=== PATIENT | female | born 1980 | race Caucasian/White ===

== ENCOUNTER 2016-09-24 15:43 | Emergency (ER) | payer OTHER ==
[2016-09-24] MEDS ORDERED: DIPH,PERTUS(ACELL)TETVAC-LF 0.5 ML VIAL IM ONE (16:16)
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
[2016-09-24] MEDS ORDERED: HYDROcodone/APAP 5-325MG 1 EACH TAB PO STA (16:41)
== END 2016-09-24 17:07 | disposition home or self-care (01) ==
LOC: EC 15:43
DX: T22.211A Burn of second degree of right forearm, initial encounter (principal); T22.231A Burn of second degree of right upper arm, initial encounter; T22.012A Burn of unspecified degree of left forearm, initial encounter; T31.0 Burns involving less than 10% of body surface; Z23 Encounter for immunization; X12.XXXA Contact with other hot fluids, initial encounter; Y92.69 Other specified industrial and construction area as the place of occurrence of the external cause; Y99.0 Civilian activity done for income or pay
CPT/HCPCS: 16020; 90471; 90715; 99283

== ENCOUNTER → 2018-11-19 | Day surgery (SDC) | payer BC ==
[2018-11-17 11:58] VITALS: BMI 22.1
--- NOTE | 2018-11-18 19:50 | P.HPOB ---
History of Present Illness H&P Date: 11/18/18 Chief Complaint: Family planning This is a 38-year-old female 3 para 2 who presents for laparoscopic bilateral tubal ligation via fulguration for family planning. She currently has an IUD that she would like removed at the time of surgery. Her current ParaGard IUD has been in over 10 years and is due for removal. She desires no future fertility. Obstetrical history: . History of 2 vaginal deliveries and 1 miscarriage. Gynecologic history: No history of sexual transmitted diseases. Social history: She is . She works part-time at [employer]. Review of Systems Constitutional: Denies chills, Denies fever Eyes: denies blurred vision, denies pain Ears, nose, mouth and throat: Denies sore throat Cardiovascular: Denies chest pain, Denies shortness of breath Respiratory: Denies cough Gastrointestinal: Denies abdominal pain, Denies diarrhea, Denies nausea, Denies vomiting Menstruation: Reports period normal Musculoskeletal: Denies myalgias Integumentary: Denies pruritus, Denies rash Neurological: Reports headaches (Occasional) Psychiatric: Denies anxiety, Denies depression Endocrine: Reports fatigue, Denies weight change Hematologic/Lymphatic: Reports easy bruising Past Medical History Additional Past Medical History / Comment(s): migraines, pt has IUD History of Any Multi-Drug Resistant Organisms: None Reported Additional Past Surgical History / Comment(s): D&C Past Anesthesia/Blood Transfusion Reactions: No Reported Reaction Past Psychological History: No Psychological Hx Reported Smoking Status: Never smoker Past Alcohol Use History: None Reported Past Drug Use History: None Reported - Past Family History Mother Family Medical History: Cancer Medications and Allergies Home Medications Medication Instructions Recorded Confirmed Type Multivitamin [Multivitamins Adult 1 each PO DAILY 11/17/18 11/17/18 History Gummies] Rizatriptan Benzoate [Maxalt] 10 mg PO DIRECTED PRN 11/17/18 11/17/18 History SUMAtriptan SUCCINATE [Imitrex] 100 mg PO DIRECTED PRN 11/17/18 11/17/18 History Allergies Allergy/AdvReac Type Severity Reaction Status Date / Time No Known Allergies Allergy Verified 11/17/18 11:52 Exam Osteopathic Statement: *. No significant issues noted on an osteopathic structural exam other than those noted in the History and Physical/Consult. HEENT: Within normal limits Heart: Regular rate and rhythm Lungs: Clear to auscultation bilaterally Abdomen: Soft, nontender Pelvic exam: Uterus is retroverted, nontender, with no adnexal masses or tenderness noted. IUD strings are visible. Extremities: Negative Homans Assessment and Plan (1) Family planning Status: Acute Code(s): Z30.09 - ENCOUNTER FOR OT GENERAL CNSL AND ADVICE ON CONTRACEPTION SNOMED Code(s): 916623784 Plan: Proceed with laparoscopic bilateral tubal ligation via fulguration and IUD removal. I have discussed the risks, benefits, and alternative therapies for the above- mentioned procedure and for both sedation/anesthesia as well as necessary blood products administration, if indicated, as they pertain to this patient. The patient has indicated her understanding and acceptance of the risks and procedures discussed.
[~2018-11-19] MED LIST: BUPIVACAINE (PF) 0.25% 30 ML VIAL SQ ONE; DEXAMETHASONE SOD PHOSPHATE 10 MG/ML 1 ML VIAL IV ONE; GLYCOPYRROLATE 0.2 MG/ML 2 ML VIAL ONE; HYDROcodone/APAP 5-325MG 1 EACH TAB PO ONE; KETOROLAC 30 MG/ML 1 ML VIAL ONE; LACTATED RINGERS 1,000 ML IV ONE; LACTATED RINGERS 1,000 ML IV SCH; LIDOCAINE 1% 20 ML VIAL (10MG/ML) FOR IV START INTRADERMA ONE; LIDOCAINE 1% INJ 10MG/ML (20 ML MDV) ONE; MIDAZOLAM 2 MG/2 ML VIAL ONE; NEOSTIGMINE 1 MG/ML 10 ML VIAL ONE; ONDANSETRON 4 MG/2 ML VIAL IVP ONE; ONDANSETRON 4 MG/2 ML VIAL IVP PRN; PROPOFOL 10 MG/ML 20 ML VIAL IV ONE; Pre Op ABX Message 1 EACH MISC MISCELLANE ONE; ROCURONIUM BROMIDE 10 MG/ML 10 ML VIAL IV ONE; SCOPOLAMINE 1.5MG/72HR PATCH TRANSDERM ONE; fentaNYL (PF) 50 MCG/ML 2 ML AMP ONE
--- NOTE | 2018-11-19 08:23 | P.OP ---
Date of Procedure: 11/19/18 Preoperative Diagnosis: Family planning Postoperative Diagnosis: Same Procedure(s) Performed: Laparoscopic bilateral tubal ligation via fulguration Removal of IUD Anesthesia: RO Surgeon: Bertha Fried Estimated Blood Loss (ml): 20 Pathology: none sent Condition: stable Disposition: same day Indications for Procedure: This is a 38-year-old female 3 para 2 who presents for laparoscopic bilateral tubal ligation via fulguration for family planning. She currently has an IUD that she would like removed at the time of surgery. Her current ParaGard IUD has been in over 10 years and is due for removal. She desires no future fertility. Operative Findings: Uterus is anteverted and sounded to 9 cm. Normal uterus tubes and ovaries are noted. IUD strings were noted to be short but were visible and IUD was removed intact. Description of Procedure: The patient is taken to the operating room where she is placed in the dorsal lithotomy position. She is prepped and draped in the normal sterile fashion. Examination is performed under anesthesia. Uterus is found to be in a anteverted position. No adnexal masses were palpated. Next a bivalve speculum was placed in the patient's vagina. A single-tooth tenaculum was used to grasp the anterior lip of the cervix. IUD strings are visualized and grasped with a ring forcep. The Mirena IUD was removed completely intact. The uterus was sounded to 9 cm. The kroner uterine manipulator was then inserted through the cervix and the balloon was inflated. The single-tooth tenaculum is removed speculum was removed gloves were changed and attention was turned to the abdomen. The infraumbilical fold was grasped in transverse fashion with 2 Allis clamps. A small transverse incision was made with a scalpel. A hemostat was used to carry the incision down to the underlying layer of fascia. A towel clip was placed above the umbilicus for retraction. A 10 mm disposable bladeless trocar was then inserted into the peritoneal cavity under direct visualization. Once inside, pneumoperitoneum was achieved with CO2 gas. The insert was removed and the camera was placed. Intraperitoneal placement was confirmed. No bleeding was noted. Next the patient was placed in Trendelenburg position. A small stab incision was made suprapubically and a 5 mm disposable bladeless trocar was inserted into the peritoneal cavity under direct visualization. Once inside pelvic contents were inspected. Next a bipolar Kleppinger instrument was placed through the inferior trocar and the midportion of each tube was brought away from other structures and completely fulgurated on approximate 2-3 cm segment of each tube. Excellent hemostasis was noted. A picture was taken. Pneumoperitoneum was released after the inferior trocar was removed under direct visualization. The upper trocar was then removed. The fascial incision was closed with 0 Vicryl suture in interrupted [id number] stitch. The skin incisions were then closed with 4-0 Vicryl suture in a subcuticular fashion. Incisions are then injected with quarter percent Marcaine. Approximately 8 mL were used. Next the kroner uterine manipulator was removed. Minimal bleeding was noted. All sponge and needle counts are correct. The patient is then taken to recovery room in stable condition.
[2018-11-19 08:47] VITALS: RESP 16; TEMP 97
[2018-11-19] MEDS: HYDROmorphone 0.5 MG/0.5 ML SYRINGE IVP PRN ×4 (08:58→09:26)
[2018-11-19 10:41] VITALS: BP 109/73; PULSE 69
== END | disposition home or self-care (01) ==
LOC: OR 06:43
PROVIDERS: ATTEND Obstetrics & Gynecology
DX: Z30.2 Encounter for sterilization (principal); Z30.432 Encounter for removal of intrauterine contraceptive device
CPT/HCPCS: 81025; 58670; 58301; J2250; J1100; J2710; J2405; J2001; J3010; J1885; J2704; J1170

== ENCOUNTER → 2018-12-01 | Outpatient (CLI) | payer BC ==
--- NOTE | 2018-12-02 10:01 | MM ---
Reason for exam: screening (asymptomatic). Baseline mammogram. History: Family history of breast cancer in paternal grandmother at age 70. Physical Findings: Nurse did not find any significant physical abnormalities on exam. MG Screening Mammo w CAD Bilateral CC and MLO view(s) were taken. The breast tissue is extremely dense which could obscure a lesion on mammography. No suspicious abnormality. No significant new findings when compared with previous films. These results were verbally communicated with the patient and result sheet given to the patient on 12/01/18. ASSESSMENT: Negative, BI-RAD 1 RECOMMENDATION: Routine screening mammogram of both breasts in 1 year.
== END | disposition home or self-care (01) ==
LOC: RADMAMWWP 10:15
PROVIDERS: ATTEND Obstetrics & Gynecology
DX: Z12.31 Encounter for screening mammogram for malignant neoplasm of breast (principal)
CPT/HCPCS: 77067

== ENCOUNTER → 2020-07-12 | Outpatient (CLI) | payer OTHER ==
--- NOTE | 2020-07-12 12:14 | MM ---
Reason for exam: additional evaluation requested from prior study. Last mammogram was performed 1 year and 7 months ago. History: Family history of breast cancer in paternal grandmother at age 70. Physical Findings: Nurse Summary: 2cm nodule in the left breast at 1 o'clock (nurse cesar). MG 3D Diag Mammo W/Cad KENIA Bilateral CC and MLO view(s) were taken. Prior study comparison: December 01, 2018, bilateral MG screening mammo w CAD. The breast tissue is extremely dense which could obscure a lesion on mammography. Finding: There is a vague 12 mm lobulated mass in the upper outer quadrant of the left breast. These results were verbally communicated with the patient and result sheet given to the patient on 07/12/20. ASSESSMENT: Incomplete: need additional imaging evaluation, BI-RAD 0 RECOMMENDATION: Ultrasound of the left breast.
--- NOTE | 2020-07-12 12:17 | USB ---
Reason for exam: additional evaluation requested from abnormal screening. History: Family history of breast cancer in paternal grandmother at age 70. US Breast Limited LT Technologist: Sharon Malone Left limited breast ultrasound including focal area of concern, retroareolar and axilla demonstrates a 1.1 x 1.4 x 0.9cm irregular, hypoechoic lesion at 1 o'clock. Scanned 12-2 o'clock. These results were verbally communicated with the patient and result sheet given to the patient on 07/12/20. ASSESSMENT: Suspicious, BI-RAD 4 RECOMMENDATION: Ultrasound core biopsy of the left breast. Called Dr. Bey's office with mammographic findings and has scheduled an appointment for the patient for 07/19/20 at 9:[address] Pham. Biopsy scheduled for 07/25/20 at 12:00. PRELIMINARY REPORT CALLED AND FAXED TO DR. PHAM ON 07/12/20.
== END ==
LOC: RADMAMWWP 09:31
PROVIDERS: ATTEND Internal Medicine
DX: N63.20 Unspecified lump in the left breast, unspecified quadrant (principal); Z80.3 Family history of malignant neoplasm of breast
CPT/HCPCS: 77062; 77066

== ENCOUNTER → 2020-07-19 | Outpatient (CLI) | payer OTHER ==
[2020-07-19 07:32] VITALS: BP 115/71; PULSE 82; RESP 16; TEMP 98.1
--- NOTE | 2020-07-19 07:58 | P.GSHP ---
History of Present Illness H&P Date: 07/19/20 Chief Complaint: mass left breast Shana is a 39 year old white female seen in consultation for Dr. Bey regarding a mass in her left breast. She noted a lump in her left breast about three weeks ago. It has not changed since she noticed it. It is not painful. She had her first mammogram approximately 2 years ago. She subsequently had a mammogram on this revealed a vague 12 mm lobulated mass in the upper outer quadrant of the left breast. She additionally had an ultrasound done on the same date which revealed a 1.4 x 1.1 cm irregular lesion at 1:00. Her prior mammogram had been on 12/01/2018 which was negative BIRADS 1. She is not complaining of any nipple discharge or skin changes. She is not complaining of any other masses in her breast. She has not had any recent history of trauma or infection in the breast. She has not had any surgery in the breast. There is no change with her periods. Caffeine: 1 cup/day nicotine: none chocolate: occasional Family history: Paternal grandmother: Breast cancer Hormonal History: menarche: 12 miscarriage:1, breast fed: yes first born at age 23 periods regular; LMP 1 week ago BCP: no had a tubaligation Surgical history: Ligation D&C Medical history: migraines Social history: Nicotine: Negative Alcohol:none drugs: none - Constitutional Constitutional: Denies chills, Denies fever - EENT Eyes: denies blurred vision, denies pain Ears: deny: decreased hearing, tinnitus Ears, nose, mouth and throat: Reports headache, Denies sore throat - Breasts Breasts: bilateral: as per HPI - Cardiovascular Cardiovascular: Denies chest pain, Denies shortness of breath - Respiratory Respiratory: Denies cough, Denies 7 - Gastrointestinal Gastrointestinal: Denies abdominal pain, Denies diarrhea, Denies nausea, Denies vomiting - Genitourinary (Female) Genitourinary: Denies dysuria, Denies hematuria - Menstruation Menstruation: Reports period normal - Musculoskeletal Musculoskeletal: Denies myalgias - Integumentary Integumentary: Denies pruritus, Denies rash - Neurological Neurological: Denies numbness, Denies weakness - Psychiatric Psychiatric: Reports anxiety, Denies depression - Endocrine Endocrine: Denies fatigue, Denies weight change - Hematologic/Lymphatic Comment: none Past Medical History Past Medical History: No Reported History History of Any Multi-Drug Resistant Organisms: None Reported Past Surgical History: Tubal Ligation Past Psychological History: No Psychological Hx Reported Past Alcohol Use History: None Reported Past Drug Use History: None Reported Medications and Allergies Home Medications Medication Instructions Recorded Confirmed Type Rizatriptan Benzoate [Maxalt] 10 mg PO DAILY PRN 11/17/18 07/13/20 History SUMAtriptan SUCCINATE [Imitrex] 100 mg PO DAILY PRN 11/17/18 07/13/20 History Allergies Allergy/AdvReac Type Severity Reaction Status Date / Time No Known Allergies Allergy Verified 07/19/20 07:22 Surgical - Exam BMI: 22.3 - General well developed, well nourished, no distress - Eyes normal ocular movement - ENT no hearing loss, no congestion - Neck trachea midline - Respiratory normal expansion, normal respiratory effort, clear to auscultation - Cardiovascular Rhythm: regular Heart Sounds: normal: S1, S2 - Abdomen Abdomen: soft, non tender, no guarding, no rigid, no rebound - Integumentary normal turgor - Neurologic no disoriented, no combative - Musculoskeletal normal gait, normal posture - Psychiatric oriented to time, oriented to person, oriented to place, speech is normal, memory intact breast exam: BRA: 34B insepction: Grade 2 ptosis bilateral Palpation: Right breast: Multi-positional exam fibrocystic changes, no dominant masses or nodules of concern Right axilla: No adenopathy of concern left breast: Multi-positional exam fibrocystic changes, dense breast, approximately 2 cm nodule in the upper outer quadrant which is mobile Left axilla: No adenopathy of concern Results Mammogram and ultrasound reviewed with Dr. Ambrose; mass left breast appreciated Assessment and Plan Assessment: Impression: 1. Mammographic and ultrasound abnormality left breast 2. Dense breast 3. Fibrocystic breast changes 4. Mass upper outer quadrant left breast 5. Migraine headaches Plan: 1. Radiograph and ultrasound reviewed with radiology and independent interpretation performed/concur with ultrasound-guided core biopsy 2. Patient to follow up after core biopsy Cc: Dr. Bey, Dr. Fried Risks and benefits of the procedure were discussed with the patient. These include but are not limited to bleeding, infection, reaction to the anesthetic. She understands and wishes to proceed.
== END ==
LOC: WWCWWP 07:15
PROVIDERS: ATTEND Surgery
DX: N63.21 Unspecified lump in the left breast, upper outer quadrant (principal); R92.2 Inconclusive mammogram; N60.12 Diffuse cystic mastopathy of left breast; N60.11 Diffuse cystic mastopathy of right breast; G43.909 Migraine, unspecified, not intractable, without status migrainosus

== ENCOUNTER → 2020-07-25 | Day surgery (SDC) | payer OTHER ==
[2020-07-25 12:07] VITALS: RESP 16
[2020-07-25 13:50] VITALS: BP 104/69; PULSE 71; TEMP 98.4
--- NOTE | 2020-07-25 15:06 | USB ---
EXAMINATION TYPE: US biopsy breast VAD LT DATE OF EXAM: 07/25/2020 CLINICAL HISTORY: R92.8 Abnormal Mammogram. TECHNIQUE: Ultrasound guided vaccuum assisted core biopsy of left breast. COMPARISON: 07/12/2020 ultrasound FINDINGS: The ultrasound guided core biopsy procedure was explained to the patient. The risks, benefits, alternatives were discussed. An informed consent was then obtained. Timeout was performed. The patient was placed in supine positioning for imaging and for the procedure. The overlying skin was prepped with betadine and sterilely draped in usual sterile fashion. Lidocaine 1% was used as anesthetic into the skin and deeper breast tissue up to area of concern in the breast. A small skin sarahy was made with surgical scalpel. Under ultrasound guidance, a 12-gauge vacuum assisted biopsy device was used to obtain 6 core samples. A biopsy clip was left in lesion. Ribbon clip was placed. Good hemostasis was obtained with direct pressure. Discharge instructions were discussed with the patient. The patient will follow up with the referring physician for results. Postprocedure mammogram: The patient was transferred to mammography for physician ordered post procedure mammogram for clip placement verification. The clip is in the expected region of the biopsy. The patient tolerated the procedure well without any immediate complication. The patient was discharged to home in stable condition. IMPRESSION: 1. Successful ultrasound guided biopsy left breast. Recommendations: 1. Recommendations are pending pathology results. 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 See Surgical Pathology Cancer Case Summary and Comment. Recommendation Surgical consult of the left breast. LEONARD
--- NOTE | 2020-07-25 15:07 | MM ---
EXAMINATION TYPE: US biopsy breast VAD LT DATE OF EXAM: 07/25/2020 CLINICAL HISTORY: R92.8 Abnormal Mammogram. TECHNIQUE: Ultrasound guided vaccuum assisted core biopsy of left breast. COMPARISON: 07/12/2020 ultrasound FINDINGS: The ultrasound guided core biopsy procedure was explained to the patient. The risks, benef its, alternatives were discussed. An informed consent was then obtained. Timeout was performed. The patient was placed in supine positioning for imaging and for the procedure. The overlying skin w as prepped with betadine and sterilely draped in usual sterile fashion. Lidocaine 1% was used as ane sthetic into the skin and deeper breast tissue up to area of concern in the breast. A small skin tk k was made with surgical scalpel. Under ultrasound guidance, a 12-gauge vacuum assisted biopsy device was used to obtain 6 core samples . A biopsy clip was left in lesion. Ribbon clip was placed. Good hemostasis was obtained with direct pressure. Discharge instructions were discussed with the pa jass. The patient will follow up with the referring physician for results. Postprocedure mammogram: The patient was transferred to mammography for physician ordered post proced ure mammogram for clip placement verification. The clip is in the expected region of the biopsy. The patient tolerated the procedure well without any immediate complication. The patient was dischar ged to home in stable condition. IMPRESSION: 1. Successful ultrasound guided biopsy left breast. Recommendations: 1. Recommendations are pending pathology results.
== END ==
LOC: RADUSWWP 11:54
PROVIDERS: ATTEND Surgery
DX: C50.912 Malignant neoplasm of unspecified site of left female breast (principal); Z17.0 Estrogen receptor positive status [ER+]
CPT/HCPCS: 88305; 88342; 88341; 77065; 19083; A4648; J2001

== ENCOUNTER → 2020-08-03 | Outpatient (CLI) | payer OTHER ==
[2020-08-03 09:10] VITALS: BP 114/76; PULSE 120; RESP 10; TEMP 97.5
--- NOTE | 2020-08-03 09:49 | P.PN ---
Subjective Progress Note Date: 08/03/20 Principal diagnosis: left breast stage IA invasive ductal cancer Gemma is a 39-year-old white female who underwent an ultrasound guided core biopsy on . This was of the left breast upper outer quadrant region. 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 The lesion is approximately 1.5 cm on ultrasound. It was not able to be seen on mammogram but was found on ultrasound. After review of the films with the radiologist she is going to have dedicated ultrasound of both breasts. The lesion is ER +100%, GA +10%, HER-2 negative, grade 3. This is a stage IA lesion. The patient's family history is positive for a paternal grandmother having had breast cancer. We have discussed the stage of the tumor. We have discussed genetic testing. Her case was discussed with Dr. Porter from medical oncology to see if she would benefit from any neoadjuvant therapy to shrink the tumor secondary to the small size of her breast prior to lumpectomy. They are going to see her next week. Last week she complained of a toothache and has had a recent tooth extraction. Family history: Paternal grandmother: Breast cancer Hormonal history: Menarche: 12 M1 breast-fed: Yes, first child born at 23 Menstrual periods Regular control pills: No had a tubal ligation Surgical history: Tubal ligation D&C Medical history: Migraines Social history: Nicotine: Negative Alcohol: Negative Drugs: Negative Review of systems: HEENT headaches; recent tooth extraction Breast as per HPI Cardiovascular: Negative Respiratory: Negative GI: Negative : Negative Musculoskeletal: Negative Neurologic: Negative Psychiatric: Anxiety Endocrine: Negative Objective - Vital Signs Vital signs: Vital Signs Temp 97.5 F L 08/03/20 09:06 Pulse 120 H 08/03/20 09:06 Resp 10 L 08/03/20 09:06 BP 114/76 08/03/20 09:06 Pulse Ox 100 08/03/20 09:06 Intake & Output 08/02/20 08/03/20 08/03/20 18:59 06:59 18:59 Weight 57.153 kg - Exam BMI 22.3 - Constitutional General appearance: Present: average body habitus, cooperative - EENT Eyes: Present: EOMI ENT: Present: hearing grossly normal - Neck Neck: Present: normal ROM - Integumentary Integumentary Comment(s): Mild ecchymosis left breast upper outer quadrant of biopsy site no evidence of infection or hematoma Assessment and Plan Assessment: Impression: 1. 39-year-old white female newly diagnosed left breast upper outer quadrant stage IA invasive ductal carcinoma T1 N0 M0 ER positive GA positive HER-2/mayra negative G3 2. Dense fibroglandular tissue and the breast/fibrocystic changes making mammographic evaluation unreliable 3. Fibrocystic breast changes 4. Family history of breast cancer Plan: 1. Genetic testing 2. Appointment with radiation oncology 3. Medical oncology 4. Presentation of case at tumor board 5. Bilateral breast MRI 6. follow up here after tumor board Surgical options ranging from bilateral mastectomy plus or minus reconstruction to lumpectomy plus radiation were discussed with the patient. If her genetic testing is negative the patient would prefer a lumpectomy. I discussed her case with Dr. Porter from medical oncology to determine if neoadjuvant therapy would be appropriate for shrinking the tumor. He will see her next week. [place] node biopsy plus or minus axillary node dissection were also discussed with the risk and benefits of this procedure. Risks and benefits of surgery include bleeding infection reaction to the anesthetic possibility of positive margin of the lumpectomy was performed which would require additional surgery. She understands these and these were discussed in more detail after her definitive treatment plan is determined. CC: Dr. Bey Encounter 60 minutes was spent reviewing medical records, physical examination, counseling, and discussion with other physicians.
--- NOTE | 2020-08-03 13:31 | USB ---
Reason for exam: clinical finding. History: Patient has history of breast cancer at age 39. Family history of breast cancer in paternal grandmother at age 70. Malignant US biopsy breast VAD LT of the left breast, July 25, 2020. US Breast BILAT Right complete breast ultrasound includes all four quadrants, the retroareolar region and axilla. Finding demonstrates no cystic or solid lesion seen. Left complete breast ultrasound includes all four quadrants, the retroareolar region and axilla. Finding demonstrates a 1.2 x 1.1 x 1.2cm irregular, hypoechoic lesion at 1 o'clock, known breast cancer and a 0.7 x 0.6 x 0.8cm round, hypoechoic lesion at 1 o'clock, abutting the biopsy proven cancer, likely small hematoma given recent biopsy. These results were verbally communicated with the patient and result sheet given to the patient on 08/03/20. ASSESSMENT: Known biopsy proven malignancy, BI-RAD 6 RECOMMENDATION: Surgical consultation of the left breast. Called Dr. Pham's office with mammographic findings. Dr. Pham spoke with Dr. Freire to review and seeing patient today. PRELIMINARY REPORT CALLED AND FAXED TO DR. PHAM ON 08/03/20.
== END ==
LOC: WWCWWP 08:54
PROVIDERS: ATTEND Surgery
DX: C50.412 Malignant neoplasm of upper-outer quadrant of left female breast (principal); G43.909 Migraine, unspecified, not intractable, without status migrainosus; Z79.899 Other long term (current) drug therapy; Z80.3 Family history of malignant neoplasm of breast

== ENCOUNTER → 2020-08-17 | Outpatient (CLI) | payer OTHER ==
--- NOTE | 2020-08-20 07:44 | BMR ---
EXAMINATION TYPE: MR breast BILAT wo/w con DATE OF EXAM: 08/17/2020 COMPARISON: 3-D diagnostic bilateral breast mammogram July 12, 2020 BI-RADS 0. Left breast ultrasoun d Limited July 12, 2020 BI-RADS 4. Complete bilateral breast ultrasound August 03, 2020 BI-RADS 6. HISTORY: Recent diagnosed left breast cancer, 1 o'clock on ultrasound guided biopsy July 25, 2020 in [place] high grade ductal carcinoma. TECHNIQUE: A series of fat and water weighted images in the long and short axis views of both breasts are obtained in conjunction with dynamic contrast MRI with subtraction technique. The patient was i njected with 6 mL intravenous Gadavist gadolinium contrast. Three-dimensional and additional postpr ocessing imaging is created on independent workstation and reviewed during official interpretation of this study. FINDINGS: There is redemonstration of extremely dense fibroglandular tissue bilaterally. Axial and coronal T2-weighted images show no significant cystic change or focal fluid collections. No suspicious axillary adenopathy is identified bilaterally. Delayed dynamic postcontrast imaging shows no concerning internal mammary adenopathy. Occasional ovo id well-defined small mass is present bilaterally measuring under 5 mm in size and reference 4 x 3 mm medial left breast at level of nipple image 285 series 302 and superior slightly outer right breast image 387 series 702. These show continued enhancement on dynamic imaging consistent with benign etio logy. Benign etiology given size and dynamic enhancement. With regards to the right breast, no abnormal skin thickening is seen. No pathologic enhancement or e nhancing greater than 5 mm mass is noted. The chest wall is intact. With regards to the left breast there is artifact from biopsy clip noted posteriorly in the upper out er quadrant image 52 series 601. Just anterior to the clip there is an irregular enhancing 1.2 x 1.1 cm lesion corresponding to site of biopsy-proven neoplasm. There is no additional suspicious greater than enhancing 5 mm mass or pathologic enhancement. No abnormal skin thickening is seen. The chest wa ll is intact. IMPRESSION: Identification of known biopsy-proven neoplasm left breast posterior outer slightly upper quadrant. No multicentric involvement left breast or MRI evidence for invasive neoplasm in the right breast. BI-RADS 6 biopsy-proven cancer left breast. BI-RADS 2 benign findings right breast. Recommendation: Appropriate surgical and oncologic management known left breast neoplasm.
== END | disposition home or self-care (01) ==
LOC: RADMRIMAIN 19:12
PROVIDERS: ATTEND Surgery
DX: C50.412 Malignant neoplasm of upper-outer quadrant of left female breast (principal)
CPT/HCPCS: 77049; C8937; A9585

== ENCOUNTER → 2020-08-31 | Outpatient (CLI) | payer OTHER ==
[2020-08-31 08:53] VITALS: BP 108/68; PULSE 72; RESP 16; TEMP 97.9
--- NOTE | 2020-08-31 09:50 | P.PN ---
Subjective Progress Note Date: 08/31/20 Principal diagnosis: left breast stage IA invasive ductal cancer left breast stage IA invasive ductal cancer Gemma is a 39-year-old white female who underwent an ultrasound guided core biopsy on . This was of the left breast upper outer quadrant region. 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 The lesion is approximately 1.5 cm on ultrasound. It was not able to be seen on mammogram but was found on ultrasound. After review of the films with the radiologist she is going to have dedicated ultrasound of both breasts. The lesion is ER +100%, [place] +10%, HER-2 negative, grade 3. This is a stage IA lesion. She also underwent an MRI of both breasts which revealed the lesion of concern noted in the left breast. No lesions of concern were noted otherwise in either breast. She also underwent Oncotype testing her Oncotype score was 22. She underwent genetic testing and verbal on the genetic testing is that it is negative for any abnormalities of significance. Her case was presented at tumor board and the recommendation was to proceed with lumpectomy and sentinel node biopsy prior to any neoadjuvant chemotherapy. The patient's family history is positive for a paternal grandmother having had breast cancer. She had a recent tooth extraction which is completely healed at this time. Family history: Paternal grandmother: Breast cancer Hormonal history: Menarche: 12 M1 breast-fed: Yes, first child born at 23 Menstrual periods Regular control pills: No had a tubal ligation Surgical history: Tubal ligation D&C Medical history: Migraines Social history: Nicotine: Negative Alcohol: Negative Drugs: Negative Review of systems: HEENT headaches; recent tooth extraction Breast as per HPI Cardiovascular: Negative Respiratory: Negative GI: Negative : Negative Musculoskeletal: Negative Neurologic: Negative Psychiatric: Anxiety Endocrine: Negative Objective - Vital Signs Vital signs: Vital Signs Temp 97.9 F 08/31/20 08:50 Pulse 72 08/31/20 08:50 Resp 16 08/31/20 08:50 BP 108/68 08/31/20 08:50 Pulse Ox 100 08/31/20 08:50 Intake & Output 08/30/20 08/31/20 08/31/20 18:59 06:59 18:59 Weight 57.153 kg - Exam BMI 22.3 - Constitutional General appearance: Present: average body habitus, cooperative - EENT Eyes: Present: EOMI ENT: Present: hearing grossly normal - Neck Neck: Present: normal ROM - Respiratory Respiratory: bilateral: CTA - Cardiovascular Rhythm: regular Heart sounds: normal: S1, S2 - Integumentary Integumentary: Present: normal turgor - Musculoskeletal Musculoskeletal: Present: gait normal - Psychiatric Psychiatric: Present: A&O x's 3, appropriate affect, intact judgment & insight - Additional findings Additional findings: Breast exam: BRA 34B inspection: Include 1/2 ptosis bilaterally Palpation: Right breast: On prior recent multiple positional exam no dominant masses or nodules of concern, fibrocystic changes Right axilla: No adenopathy of concern Left breast: Multi-positional exam fibrocystic changes, mass upper outer quadrant approximately 1 cm in size consistent with the radiographic changes and positive for invasive ductal carcinoma Left axilla: No adenopathy of concern Assessment and Plan Assessment: Impression/plan: 1. Stage I a left breast cancer 2. Genetic testing negative for genetic abnormality of significance as per verbal 3. MRI bilateral depressed no multifocal or multicentric disease 4. Patient patient's case presented at tumor board recommendation to proceed with surgery patient is not recommended to have neoadjuvant chemotherapy 5. Recent Oncotype testing 22 Plan: 1. Needle localization lumpectomy left breast 2. Possible optical plastic tissue transfer 3. [place] node injection, sentinel node biopsy, possible axillary node dissection Risks and benefits of the procedure were discussed with the patient. She is not felt to be a good candidate for mastopexy incision. We will proceed with lumpectomy. Patient was given the option of a mastectomy and does not wish to have this done. She understands that she will need to have radiation therapy following the procedure. Additionally risks include but are not limited to bleeding, infection, reaction to the anesthetic. If the margins were to be positive she understands she would need reexcision. Additionally risk of the axillary dissection include decreased sensation to the upper arm as well as possible swelling of the arm. Risk of injury to the dorsal or long thoracic nerve were discussed. She understands and wishes to proceed. Cc: Dr. Bey
== END ==
LOC: WWCWWP 08:34
PROVIDERS: ATTEND Surgery
DX: C50.912 Malignant neoplasm of unspecified site of left female breast (principal); Z17.0 Estrogen receptor positive status [ER+]; Z98.890 Other specified postprocedural states

== ENCOUNTER 2020-09-11 08:52 | Day surgery (SDC) | payer OTHER ==
[2020-09-06 14:29] VITALS: BMI 22.3
[~2020-09-11 08:52] MED LIST changes: -BUPIVACAINE (PF) 0.25% 30 ML VIAL SQ ONE; -DEXAMETHASONE SOD PHOSPHATE 10 MG/ML 1 ML VIAL IV ONE; +DEXAMETHASONE SOD PHOSPHATE 4 MG/ML 1 ML VIAL IV ONE; -GLYCOPYRROLATE 0.2 MG/ML 2 ML VIAL ONE; +HEPARIN SODIUM,PORCINE/PF 5,000 UNIT/0.5 ML SYRINGE SQ PRN; -HYDROcodone/APAP 5-325MG 1 EACH TAB PO ONE; -KETOROLAC 30 MG/ML 1 ML VIAL ONE; -LACTATED RINGERS 1,000 ML IV ONE; -LIDOCAINE 1% 20 ML VIAL (10MG/ML) FOR IV START INTRADERMA ONE; -LIDOCAINE 1% INJ 10MG/ML (20 ML MDV) ONE; +MIDAZOLAM 2 MG/2 ML VIAL IV PRN; -MIDAZOLAM 2 MG/2 ML VIAL ONE; -NEOSTIGMINE 1 MG/ML 10 ML VIAL ONE; -ONDANSETRON 4 MG/2 ML VIAL IVP PRN; -PROPOFOL 10 MG/ML 20 ML VIAL IV ONE; -ROCURONIUM BROMIDE 10 MG/ML 10 ML VIAL IV ONE; -fentaNYL (PF) 50 MCG/ML 2 ML AMP ONE
[2020-09-11] MEDS ORDERED: LIDOCAINE 1% (10MG/ML) FOR IV START INTRADERMA ONE (09:36)
[2020-09-11] MEDS ORDERED: LIDOCAINE 1% INJ 10MG/ML (20 ML MDV) SQ ONE (10:12)
--- NOTE | 2020-09-11 10:38 | USB ---
ULTRASOUND GUIDED LEFT BREAST NEEDLE LOCALIZATION : CLINICAL HISTORY: 1:00 lesion left breast FINDINGS: The procedure was explained to the patient. The risks, complications, benefits and alternatives were discussed and any questions were answered. Informed consent was obtained. Patient was placed supine on the ultrasound table and prepped and draped in the usual sterile fashion. Utilizing a K[place] 7 cm needle, the needle was placed through the lesion. The wire was subsequently placed. Mammographic and sonographic images demonstrate straight ideal placement of the wire. Needle was removed. All elements of maximal barrier and sterile technique were utilized. IMPRESSION: 1. Successful ultrasound guided left breast needle localization. Pathology Results: Malignant A. SENTINEL LYMPH NODES, EXCISION: 2 sentinel lymph nodes, each negative for metastatic carcinoma (0/2). CK7 and JASMEET stains with appropriate controls on blocks A1 and A2 negative for metastatic carcinoma. B. LEFT BREAST, LUMPECTOMY: Invasive high grade ductal carcinoma, Grade 3, with adjacent high grade ductal carcinoma in situ with comedonecrosis and features compatible with extensive intraductal component (see surgical pathology cancer case summary and comment). All margins negative for invasive carcinoma and DCIS. Closest margin to invasive carcinoma: close to and less than 1 mm from inferior/anterior margin junction. Closest margin to DCIS: close to and less than 1 mm from inferior and posterior margins. Positive for lymphovascular invasion and perineural invasion. Recommendation Surgical consult of the left breast. LEONARD
--- NOTE | 2020-09-11 10:57 | NM ---
EXAMINATION TYPE: NM sentinel node injection DATE OF EXAM: 09/11/2020 COMPARISON: NONE HISTORY: Left breast cancer TECHNIQUE AND FINDINGS: The procedure of sentinel lymph node injection was explained to the patient. The benefits, alternatives, and risks were discussed. An informed consent was then obtained. Overlying skin is cleaned with sterile alcohol. Following this, 520 uCi Tc99m Tilmanocept was inject ed in the upper outer aspect of the left nipple intradermally. The patient tolerated the procedure well without any immediate complication. The patient was kept in the radiology department for short stay after the procedure and then taken to surgery for surgical p rocedure what is presumed intraoperative gamma probe will be used for sentinel lymph node detection. IMPRESSION: Left breast radiotracer injection for sentinel node localization as above.
--- NOTE | 2020-09-11 11:16 | P.NAPBC ---
NAPBC Queries - NAPBC Queries Was patient's case review presented at [facility] tumor board? If no, comment.: Yes Was patient's pathology reviewed at [facility]? If no, comment.: Yes Was breast conservation surgery offered? If no, comment.: Yes Was sentinel node biopsy offered? If no, comment.: Yes Was diagnosis confirmed by percutaneous core biopsy? If no, comment.: Yes Is patient mastectomy patient?: No Was a preop referral to reconstructive surgeon offered?: No Clinical Stage: olayinka IA
[2020-09-11] MEDS ORDERED: KETOROLAC 15 MG/ML 1 ML VIAL ONE (11:37)
[2020-09-11] MEDS ORDERED: HYDROmorphone (PF) 1 MG/ML ONE (11:37)
[2020-09-11] MEDS ORDERED: PHENYLEPHRINE-0.9% NACL SYG 1,000 MCG/10 ML SYRINGE ONE (11:37)
[2020-09-11] MEDS ORDERED: PROPOFOL 10 MG/ML 20 ML VIAL IV ONE (11:37)
[2020-09-11] MEDS ORDERED: fentaNYL (PF) 50 MCG/ML 2 ML AMP ONE (11:37)
[2020-09-11] MEDS ORDERED: MIDAZOLAM 2 MG/2 ML VIAL ONE (11:37)
[2020-09-11] MEDS ORDERED: LIDOCAINE 1% INJ 10MG/ML (20 ML MDV) ONE (11:37)
--- NOTE | 2020-09-11 13:11 | P.OP ---
Date of Procedure: 09/11/20 Preoperative Diagnosis: Left breast stage IA invasive ductal carcinoma Postoperative Diagnosis: Same Procedure(s) Performed: Left breast sentinel node biopsy, needle localization lumpectomy, onco-plastic tissue transfer 48 centimeters squared Anesthesia: GETA Surgeon: Denise Pham Estimated Blood Loss (ml): 5 IV fluids (ml): 100 Pathology: other ([place] lymph node, breast) Condition: stable Disposition: same day Indications for Procedure: Core biopsy-proven left breast invasive ductal carcinoma Operative Findings: Dense breast tissue Description of Procedure: Gemma is a 39-year-old white female diagnosed with a left breast invasive ductal carcinoma. She was brought to the operating room following needle localization of the area of concern in radiology and periareolar injection of radioactive tracer. Following induction of anesthesia the neoprobe was used to identify the radiotracer had traveled to the axilla. After this was noted to be present, the left breast and axilla were prepped and draped in a sterile fashion. Using the neoprobe the area for incision in the axilla was determined. An incision was made and carried down to the area of greatest radioactivity. A radioactive lymph node was identified. The 10 second count on the lymph node was 3157. The background 10 second count was 3. After we were assured that hemostasis was attained the deep tissues were closed using 3-0 Vicryl suture. This was followed by closure of the skin with 4-0 Monocryl. Following this the area of the breast was approached. An incision was made near the area of the tumor. The wire was brought into the area of the incision. Skin was taken with our incision. Dissection was performed circumferentially around the lesion down to the area of the chest wall. Dissection was performed onto the pectoralis major muscle. Surrounding tissue was excised. The tissue excised was 5 x 4 cm. An inferior pedicle which was 6 x 3 cm was mobilized. The superior pedicle which was 5 x 2 cm was mobilized. Total tissue mobilized was 48 cm. The cavity was well irrigated. Titanium clips were placed. The cavity was then brought together using 3-0 Vicryl suture. The specimen itself was painted and sent to radiology to assure that the area of concern was removed. X-ray confirmation revealed the area of concern had been removed. Anterior skin was removed, posteriorly dissection was on the chest wall. Following this the subcutaneous tissue was closed using 3-0 Vicryl suture. The skin was closed using a 4-0 Monocryl. The patient tolerated the procedure in stable condition. All instrument and sponge counts were correct at the end of the case.
--- NOTE | 2020-09-11 13:13 | P.DS ---
Providers Attending physician: Denise Pham Primary care physician: Laquita Bey MD Plan - Discharge Summary Discharge Rx Participant: Yes New Discharge Prescriptions: No Action SUMAtriptan SUCCINATE [Imitrex] 100 mg PO DAILY PRN PRN Reason: migraines Rizatriptan Benzoate [Maxalt] 10 mg PO DAILY PRN PRN Reason: migraines Ibuprofen [Motrin] 800 mg PO Q8H Discharge Medication List Rizatriptan Benzoate [Maxalt] 10 mg PO DAILY PRN 11/17/18 [History] SUMAtriptan SUCCINATE [Imitrex] 100 mg PO DAILY PRN 11/17/18 [History] Ibuprofen [Motrin] 800 mg PO Q8H 08/03/20 [History] Follow up Appointment(s)/Referral(s): Denise Pham MD [STAFF PHYSICIAN] - 1 Week Activity/Diet/Wound Care/Special Instructions: Do not drive today Wear bra at all times May shower after 48 hours Discharge Disposition: HOME SELF-CARE
[2020-09-11] MEDS ORDERED: LACTATED RINGERS 1,000 ML IV ONE (13:18)
[2020-09-11] MEDS: HYDROmorphone 0.5 MG/0.5 ML SYRINGE IVP PRN ×4 (13:44→14:23)
[2020-09-11 13:55] VITALS: TEMP 98.1
[2020-09-11 13:58] VITALS: RESP 16
[2020-09-11] MEDS ORDERED: HYDROcodone/APAP 5-325MG 1 EACH TAB ONE (15:34)
[2020-09-11] MEDS ORDERED: HYDROcodone/APAP 5-325MG 1 EACH TAB PO ONE (15:35)
[2020-09-11] MEDS ORDERED: ONDANSETRON 4 MG/2 ML VIAL ONE (15:43)
[2020-09-11] MEDS ORDERED: ONDANSETRON 4 MG/2 ML VIAL IVP ONE (15:45)
[2020-09-11 16:03] VITALS: BP 110/65; PULSE 97
== END 2020-09-11 16:23 | disposition home or self-care (01) ==
LOC: OR 08:52
PROVIDERS: ATTEND Surgery
DX: C50.912 Malignant neoplasm of unspecified site of left female breast (principal); Z17.0 Estrogen receptor positive status [ER+]; Z98.51 Tubal ligation status; Z98.890 Other specified postprocedural states; F41.9 Anxiety disorder, unspecified; Z79.1 Long term (current) use of non-steroidal anti-inflammatories (NSAID)
CPT/HCPCS: 19301; 38525; 14301; 81025; 88342; 88307; 88341; 38792; A9520; J2250; J1100; J2405; J2001; J3010; J1170 ×2; J1885; J2370; J2704; J1644

== ENCOUNTER → 2020-09-17 | Outpatient (CLI) | payer OTHER ==
[2020-09-17 10:14] VITALS: BP 113/72; PULSE 72; RESP 18; TEMP 97.5
--- NOTE | 2020-09-17 10:15 | P.PN ---
Subjective Progress Note Date: 09/17/20 Principal diagnosis: Left breast stage IA invasive ductal carcinoma Gemma is a 40-year-old white female status post left breast lumpectomy and sentinel node biopsy on . Pathology revealed a 1.5 cm invasive ductal carcinoma all margins negative. 2 sentinel lymph nodes each negative. The patient postprocedure developed a rash on the left forearm it is punctate in nature. It does not itch. The patient does not have any fever or chills. She does complain of some persistent discomfort under the left arm. Objective - Constitutional General appearance: Present: average body habitus - EENT Eyes: Present: EOMI ENT: Present: hearing grossly normal - Respiratory Respiratory: bilateral: CTA - Cardiovascular Rhythm: regular Heart sounds: normal: S1, S2 - Integumentary Integumentary Comment(s): Incision clean and dry arm and breast Small area of punctate folliculitis/rash left forearm Question a few small areas on the abdomen Assessment and Plan Assessment: Impression: 1. Patient status post left breast lumpectomy and sentinel node biopsy/margins negative/sentinel nodes negative 2. Small punctate rash forearm/question etiology 3. Persistent discomfort under her left arm Plan: 1. Follow-up medical oncology 2. Follow-up radiation oncology 3. Follow-up here in 3 months 4. Patient with some persistent discomfort under her left arm was given another prescription for [place] 5. Patient to use Benadryl and if this persists will call us Cc: Dr. Bey
== END ==
LOC: WWCWWP 09:58
PROVIDERS: ATTEND Surgery
DX: Z48.3 Aftercare following surgery for neoplasm (principal); C50.912 Malignant neoplasm of unspecified site of left female breast; Z98.890 Other specified postprocedural states

== ENCOUNTER 2020-12-14 19:13 | Emergency (ER) | payer OTHER ==
[2020-12-14 19:37] VITALS: TEMP 98.7
[2020-12-14] MEDS ORDERED: SODIUM CHLORIDE 0.9% 1,000 ML IV STA (20:09)
[2020-12-14] MEDS ORDERED: diphenhydrAMINE 50 MG/ML 1 ML VIAL IVP STA (20:09)
[2020-12-14] MEDS ORDERED: KETOROLAC 15 MG/ML 1 ML VIAL IVP STA ×2 (20:09→23:04)
[2020-12-14] MEDS ORDERED: ONDANSETRON 4 MG/2 ML VIAL IVP STA (20:09)
--- NOTE | 2020-12-14 20:40 | ED ---
General Adult HPI - General Chief complaint: Nausea/Vomiting/Diarrhea Stated complaint: Vomiting, Migrane Time Seen by Provider: 12/14/20 19:48 Source: patient Mode of arrival: ambulatory Limitations: no limitations - History of Present Illness Initial comments: Patient is a 40-year-old female, currently undergoing chemo treatment for breast cancer, presenting to the emergency Department with complaints of nausea and vomiting as well as a headache that started yesterday. Patient states she did have a checkup with her oncologist yesterday, she had a mild headache then but then this morning the headache worsened and she has continued to have nausea and vomiting all day today. Her last chemo treatment was November 26, she goes every 28 days. She's had no recent fevers or chills. She states yesterday while at her doctor's office she did have some low blood pressure so they recommended her getting some IV fluids, she states she did feel improvement. She doesn't history of migraines, she gets them quite frequently but is usually controlled with her at home medications. She states since she has been having some much vomiting over the past day she has not been able to keep down her home medications. She states that this does feel like her typical migraines. She denies any neck pain, no fevers, no abdominal pain. No falls or trauma. She denies any dysuria. She has no further complaints. Her vitals are stable upon arrival. - Related Data Home Medications Medication Instructions Recorded Confirmed Rizatriptan Benzoate [Maxalt] 10 mg PO DAILY PRN 11/17/18 12/14/20 SUMAtriptan SUCCINATE [Imitrex] 100 mg PO DAILY PRN 11/17/18 12/14/20 ALPRAZolam [Xanax] 0.5 mg PO TID PRN 12/14/20 12/14/20 Butalb/APAP/Caff 50-325-40Mg 1 tab PO Q8H PRN 12/14/20 12/14/20 [Fioricet 50-325-40] Cyclobenzaprine [Flexeril] 5 mg PO TID PRN 12/14/20 12/14/20 Dexamethasone [Decadron] 4 mg PO BID PRN 12/14/20 12/14/20 HYDROcodone/APAP 5-325MG [[place] 1 tab PO Q4HR PRN 12/14/20 12/14/20 5-325] OLANZapine [ZyPREXA] 2.5 mg PO DAILY PRN 12/14/20 12/14/20 Omeprazole 40 mg PO DAILY 12/14/20 12/14/20 Sennosides/Docusate Sodium [Senna 1 cap PO BID PRN 12/14/20 12/14/20 Plus 8.6-50 mg Softgel] ondansetron HCL [Zofran] 8 mg PO Q12HR PRN 12/14/20 12/14/20 Allergies Allergy/AdvReac Type Severity Reaction Status Date / Time No Known Allergies Allergy Verified 12/14/20 21:45 Review of Systems ROS Statement: Those systems with pertinent positive or pertinent negative responses have been documented in the HPI. ROS Other: All systems not noted in ROS Statement are negative. Past Medical History Past Medical History: Cancer Additional Past Medical History / Comment(s): migraines; breast cancer History of Any Multi-Drug Resistant Organisms: None Reported Past Surgical History: Tubal Ligation Additional Past Surgical History / Comment(s): D&C; lumpectomy and lymph node removed Past Anesthesia/Blood Transfusion Reactions: No Reported Reaction Past Psychological History: No Psychological Hx Reported Smoking Status: Never smoker Past Alcohol Use History: None Reported Past Drug Use History: None Reported - Past Family History Father Family Medical History: No Reported History Additional Family Medical History / Comment(s): paternal grandmother: breast cancer Mother Family Medical History: No Reported History General Exam - General Exam Comments Initial Comments: GENERAL: Patient is well-developed and well-nourished. Patient is nontoxic and in mild distress. HEAD: Atraumatic, normocephalic. EYES: Pupils equal round and reactive to light, extraocular movements intact, sclera anicteric, conjunctiva are normal. Eyelids were unremarkable. Light sensitive. ENT: Nares patent, oropharynx clear without exudates. Moist mucous membranes. NECK: Normal range of motion, supple without lymphadenopathy or JVD. LUNGS: Unlabored respirations. Breath sounds clear to auscultation bilaterally and equal. No wheezes rales or rhonchi. HEART: Regular rate and rhythm without murmurs, rubs or gallops. ABDOMEN: Soft, nontender, normoactive bowel sounds. No guarding, no rebound. No masses appreciated. : Deferred MUSCULOSKELETAL: Normal extremities with adequate strength and normal range of motion, no pitting or edema. No clubbing or cyanosis. NEUROLOGICAL: Patient is alert and oriented x 3. Motor and sensory are also intact. Cranial nerves II through XII grossly intact. Symmetrical smile. Normal speech, normal gait. PSYCH: Normal mood, normal affect. SKIN: Warm, Dry, normal turgor, no rashes or lesions noted. Limitations: no limitations Course Vital Signs 12/14/20 12/14/20 12/14/20 19:34 22:06 23:01 Temperature 98.7 F Pulse Rate 100 79 94 Respiratory 20 18 18 Rate Blood Pressure 109/69 104/55 92/52 O2 Sat by Pulse 100 100 100 Oximetry Medical Decision Making - Medical Decision Making Patient is a 40-year-old female, currently undergoing chemo treatment for breast cancer, presenting with a headache, nausea and vomiting the mostly started today. She did have a mild headache yesterday, increased today. Nausea and vomiting started this morning. She does have history of migraines, typically is controlled at home medications however she is not able to tolerate them secondary to nausea today. No fevers, her vitals are stable., No acute neuro deficits. Labs are within normal limits, urine shows no evidence of infection, 3+ ketones. I do give patient a liter of fluids, pain control and Zofran. She has been resting comfortably. Rates her headache is approximately 5/10, she d oes feel well go home. I recommended following up with her oncologist as well as her PCP. She is agreeable splenic care. Return parameters were discussed with her and she verbalized understanding. Case discussed with Dr. Snell. - Lab Data Result diagrams: 12/14/20 20:44 12/14/20 20:44 Lab Results 12/14/20 12/14/20 12/14/20 Range/Units 20:44 20:44 20:51 WBC 5.0 (3.8-10.6) k/uL RBC 3.70 L (3.80-5.40) m/uL Hgb 11.8 (11.4-16.0) gm/dL Hct 34.5 (34.0-46.0) % MCV 93.3 (80.0-100.0) fL MCH 31.8 (25.0-35.0) pg MCHC 34.1 (31.0-37.0) g/dL RDW 14.3 (11.5-15.5) % Plt Count 271 (150-450) k/uL MPV 8.1 Neutrophils % 81 % Lymphocytes % 12 % Monocytes % 4 % Eosinophils % 0 % Basophils % 0 % Neutrophils # 4.1 (1.3-7.7) k/uL Lymphocytes # 0.6 L (1.0-4.8) k/uL Monocytes # 0.2 (0-1.0) k/uL Eosinophils # 0.0 (0-0.7) k/uL Basophils # 0.0 (0-0.2) k/uL Sodium 138 (137-145) mmol/L Potassium 4.1 (3.5-5.1) mmol/L Chloride 102 (98-107) mmol/L Carbon Dioxide 28 (22-30) mmol/L Anion Gap 8 mmol/L BUN 6 L (7-17) mg/dL Creatinine 0.41 L (0.52-1.04) mg/dL Est GFR (CKD-EPI)AfAm >90 (>60 ml/min/1.73 sqM) Est GFR (CKD-EPI)NonAf >90 (>60 ml/min/1.73 sqM) Glucose 106 H (74-99) mg/dL Calcium 9.7 (8.4-10.2) mg/dL Magnesium 2.0 (1.6-2.3) mg/dL Total Bilirubin 0.5 (0.2-1.3) mg/dL AST 25 (14-36) U/L ALT 17 (4-34) U/L Alkaline Phosphatase 76 (38-126) U/L Total Protein 6.3 (6.3-8.2) g/dL Albumin 3.9 (3.5-5.0) g/dL Urine Color Yellow Urine Appearance Turbid H (Clear) Urine pH 8.0 (5.0-8.0) Ur Specific [place] 1.016 (1.001-1.035) Urine Protein Negative (Negative) Urine Glucose (UA) Negative (Negative) Urine Ketones 3+ H (Negative) Urine Blood Negative (Negative) Urine Nitrite Negative (Negative) Urine Bilirubin Negative (Negative) Urine Urobilinogen <2.0 (<2.0) mg/dL Ur Leukocyte Esterase Trace H (Negative) Urine RBC 6 H (0-5) /hpf Urine WBC 4 (0-5) /hpf Ur Squamous Epith Cells 2 (0-4) /hpf Amorphous Sediment Occasional H (None) /hpf Urine Bacteria Rare H (None) /hpf Urine Mucus Rare H (None) /hpf Disposition Clinical Impression: Dehydration, Migraine Disposition: HOME SELF-CARE Condition: Stable Instructions (If sedation given, give patient instructions): Acute Headache (ED) Additional Instructions: Please return to the Emergency Department if symptoms worsen or any other co ncerns. May take Zofran every 8 hours for additional nausea or vomiting. Please follow-up with your oncologist. Is patient prescribed a controlled substance at d/c from ED?: No Referrals: Laquita Bey MD [Primary Care Provider] - 1-2 days Time of Disposition: 22:50
[2020-12-14 20:53] LABS: Basophils % (A) 0 %; Eosinophils % (A) 0 %; HCT 34.5 % (34.0-46.0); HGB 11.8 gm/dL (11.4-16.0); Lymphocytes # (A) 0.6 k/uL (1.0-4.8); Lymphocytes % (A) 12 %; MCH 31.8 pg (25.0-35.0); MCHC 34.1 g/dL (31.0-37.0); MCV 93.3 fL (80.0-100.0); Mean Platelet Volume 8.1; Monocytes # (A) 0.2 k/uL (0-1.0); Monocytes % (A) 4 %; Neutrophils # (A) 4.1 k/uL (1.3-7.7); Neutrophils % (A) 81 %; Platelet Count 271 k/uL (150-450); RDW 14.3 % (11.5-15.5)
[2020-12-14 21:02] LABS: ALT 17 U/L (4-34); AST 25 U/L (14-36); African American GFR (CKD) >90 (>60 ml/min/1.73 sqM); Albumin 3.9 g/dL (3.5-5.0); Alkaline Phosphatase 76 U/L (38-126); Anion Gap 8 mmol/L; Blood Urea Nitrogen 6 mg/dL (7-17); Calcium 9.7 mg/dL (8.4-10.2); Carbon Dioxide 28 mmol/L (22-30); Chloride 102 mmol/L (98-107); Glucose 106 mg/dL (74-99); Non-African American GFR(CKD) >90 (>60 ml/min/1.73 sqM); Potassium 4.1 mmol/L (3.5-5.1); Sodium 138 mmol/L (137-145); Total Bilirubin 0.5 mg/dL (0.2-1.3); Total Protein 6.3 g/dL (6.3-8.2)
[2020-12-14 21:08] LABS: Amorphous Sediment,Urine Occasional /hpf; Appearance,Urine Turbid (Clear); Bacteria,Urine Rare /hpf; Bilirubin,Urine Negative (Negative); Blood,Urine Negative (Negative); Color,Urine Yellow; Glucose,Urine (UA) Negative (Negative); Ketones,Urine 3+ (Negative); Leukocyte Esterase,Urine Trace (Negative); Mucus,Urine Rare /hpf; Nitrite,Urine Negative (Negative); Protein,Urine Negative (Negative); RBC,Urine 6 /hpf (0-5); Specific Gravity,Urine 1.016 (1.001-1.035); Squamous Epithelial Cell,Urine 2 /hpf (0-4); Urobilinogen,Urine <2.0 mg/dL (<2.0); WBC,Urine 4 /hpf (0-5)
[2020-12-14] MEDS ORDERED: MORPHINE SULFATE 4 MG/ML SYRINGE IVP STA (21:34)
[2020-12-14 22:07] VITALS: RESP 18
[2020-12-14] MEDS ORDERED: MORPHINE SULFATE 2 MG/ML SYRINGE IVP ONE (22:49)
[2020-12-14] MEDS ORDERED: ONDANSETRON 4 MG ODT STARTER PACK 2 TAB BTL PO STA (22:49)
[2020-12-14 23:02] VITALS: BP 92/52; PULSE 94
== END 2020-12-14 23:14 | disposition home or self-care (01) ==
LOC: EC 19:13
DX: E86.0 Dehydration (principal); G43.909 Migraine, unspecified, not intractable, without status migrainosus
CPT/HCPCS: 36415; 80053; 83735; 85025; 81001; 99284; 96374; 96375; 96376; 96361; J2270; J1200; J2405; J1885; S0119

== ENCOUNTER → 2020-12-28 | Outpatient (CLI) | payer OTHER ==
[2020-12-28 15:38] VITALS: BP 93/69; PULSE 118; RESP 16; TEMP 98.4
--- NOTE | 2020-12-28 16:16 | P.PN ---
Subjective Progress Note Date: 12/28/20 Principal diagnosis: stage IA left breast invasive ductal carcinoma left breast stage IA invasive ductal cancer Gemma is a 39-year-old white female who underwent an ultrasound guided core biopsy on . This was of the left breast upper outer quadrant region. 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 The lesion is approximately 1.5 cm on ultrasound. It was not able to be seen on mammogram but was found on ultrasound. After review of the films with the radiologist she is going to have dedicated ultrasound of both breasts. The lesion is ER +100%, CO +10%, HER-2 negative, grade 3. This is a stage IA lesion. She also underwent an MRI of both breasts which revealed the lesion of concern noted in the left breast. No lesions of concern were noted otherwise in either breast. She also underwent Oncotype testing her Oncotype score was 22. She underwent genetic testing which was negative. Her case was presented at tumor board and the recommendation was to proceed with lumpectomy and sentinel node biopsy prior to any neoadjuvant chemotherapy. The patient's family history is positive for a paternal grandmother having had breast cancer. She underwent a left partial mastectomy on . [place] lymph node biopsy was negative. Margins negative. She has finished a course of chemotherapy. She is going to undergo radiation therapy and will then have hormone therapy. Today she states she is feeling well. She is not complaining of any new lumps masses or nodules in either breast. Medical oncology note from [id number] reviewed. Family history: Paternal grandmother: Breast cancer Hormonal history: Menarche: 12 M1 breast-fed: Yes, first child born at 23 Menstrual periods Regular control pills: No had a tubal ligation Surgical history: Tubal ligation D&C left breast lumpectomy and SNB Medical history: Migraines Social history: Nicotine: Negative Alcohol: Negative Drugs: Negative Review of systems: HEENT headaches; recent tooth extraction Breast as per HPI Cardiovascular: Negative Respiratory: Negative GI: Negative : Negative Musculoskeletal: Negative Neurologic: Negative Psychiatric: Anxiety Endocrine: Negative Objective - Vital Signs Vital signs: Vital Signs Temp 98.4 F 12/28/20 15:34 Pulse 118 H 12/28/20 15:34 Resp 16 12/28/20 15:34 BP 93/69 12/28/20 15:34 Pulse Ox 100 12/28/20 15:34 Intake & Output 12/27/20 12/28/20 12/28/20 18:59 06:59 18:59 Weight 58.513 kg - Exam BMI 22.9 - Constitutional General appearance: Present: cooperative - EENT Eyes: Present: EOMI ENT: Present: hearing grossly normal - Neck Neck: Present: normal ROM - Respiratory Respiratory: bilateral: CTA - Cardiovascular Rhythm: regular Heart sounds: normal: S1, S2 - Gastrointestinal General gastrointestinal: Present: soft - Integumentary Integumentary: Present: normal turgor - Musculoskeletal Musculoskeletal: Present: gait normal - Psychiatric Psychiatric: Present: A&O x's 3, appropriate affect, intact judgment & insight - Additional findings Additional findings: Breast Exam: BRA: 34B Inspection: Grade 2 ptosis bilateral Palpation: Right breast: Multiple positional exam no dominant masses or nodules of concern Right axilla: No adenopathy of concern Left breast: Reveals scar from prior surgery, multiple positional exam no dom inant masses or nodules of concern Left axilla: No adenopathy of concern Assessment and Plan Assessment: Impression: 1. Patient status post lumpectomy sentinel node biopsy for stage I a left breast cancer 2. Patient has finished a course of neoadjuvant chemotherapy 3. Patient is going to start radiation therapy 4. Patient will have hormonal therapy following the radiation therapy Plan: 1. Follow up here 4 months 2. Continue course of treatment radiation therapy to be followed by hormonal therapy CC: Dr. Bey
== END | disposition home or self-care (01) ==
LOC: WWCWWP 15:26
PROVIDERS: ATTEND Surgery
DX: Z53.9 Procedure and treatment not carried out, unspecified reason (principal)

== ENCOUNTER → 2021-03-11 | Outpatient (CLI) | payer OTHER ==
--- NOTE | 2021-03-11 07:44 | CT ---
EXAMINATION TYPE: CT thoracic spine wo/w con DATE OF EXAM: 03/11/2021 COMPARISON: None at this institution. HISTORY: abnormal outside t-spine mri, history of breast cancer. Back pain for [address] DLP: 904.2 mGycm Automated exposure control for dose reduction was used. CONTRAST: Performed without and with IV Contrast, patient injected with 100 mL of Isovue 300. FINDINGS: On the CT study thoracic spine show satisfactory alignment without acute fracture or dislocation. Petar tebral body heights and disc space heights are maintained. No suspicious focal osseous lesion is pres ent. Spinal canal is grossly preserved. No large disc herniation is seen. Review of axial images shows no suspicious enhancement or enhancing masses. Paraspinal muscle bulk is preserved. Visualized thorax and upper abdomen show no gross abnormality. IMPRESSION: As above. If outside MRI and/or report become available, an addendum can be issued.
== END | disposition home or self-care (01) ==
LOC: RADCTMAIN 06:39
PROVIDERS: ATTEND Psychiatry & Neurology Neurology
DX: R93.7 Abnormal findings on diagnostic imaging of other parts of musculoskeletal system (principal)
CPT/HCPCS: 72130; Q9967

== ENCOUNTER → 2021-05-09 | Outpatient (CLI) | payer OTHER ==
[2021-05-09 12:41] VITALS: PULSE 77; RESP 18; TEMP 97.9
[2021-05-09 12:42] VITALS: BP 124/77
--- NOTE | 2021-05-09 13:14 | P.PN ---
Subjective Progress Note Date: 05/09/21 Principal diagnosis: stage IA left breast cancer Gemma is a 40-year-old white female who underwent an ultrasound guided core biopsy on . This was of the left breast upper outer quadrant region. 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 The lesion is approximately 1.5 cm on ultrasound. It was not able to be seen on mammogram but was found on ultrasound. The lesion is ER +100%, [place] +10%, HER-2 negative, grade 3. This is a stage IA lesion. She also underwent an MRI of both breasts which revealed the lesion of concern noted in the left breast. No lesions of concern were noted otherwise in either breast. She also underwent Oncotype testing her Oncotype score was 22. She underwent genetic testing which was negative. Her case was presented at tumor board and the recommendation was to proceed with lumpectomy and sentinel node biopsy prior to any neoadjuvant chemotherapy. The patient's family history is positive for a paternal grandmother having had breast cancer. She underwent a left partial mastectomy on . [place] lymph node biopsy was negative. Margins were negative. She has finished a course of chemotherapy in December 2020. Completed radiation therapy on 02/19/2021. She was given a prescription for Tamoxifen however she has not started it yet as she is concerned about the side effects. Today she states she is feeling well. She states over the last week her left breast feels swollen and she has some d iscomfort under her arm. She has not noted any new lumps masses or nodules in either breast. She did have an MRI of her head and C-spine as well as of her lumbar spine. Those were done at Dr. Jefferson's office, she sees him secondary to chronic migraines. Additional studies of the thoracic spine were done. She had a computed tomography scan of the thoracic spine performed on and compared to the outside MRI report. No suspicious lytic or sclerotic lesions were noted at the T8 vertebrae. Medical oncology note from 03-05-21 reviewed. Family history: Paternal grandmother: Breast cancer Hormonal history: Menarche: 12 M1 breast-fed: Yes, first child born at 23 Menstrual periods Regular control pills: No had a tubal ligation Surgical history: Tubal ligation D&C left breast lumpectomy and SNB Medical history: Migraines Social history: Nicotine: Negative Alcohol: Negative Drugs: Negative Review of systems: HEENT headaches; recent tooth extraction Breast as per HPI Cardiovascular: Negative Respiratory: Negative GI: Negative : Negative Musculoskeletal: Negative Neurologic: Negative Psychiatric: Anxiety Endocrine: Negative Objective - Vital Signs Vital signs: Vital Signs Temp 97.9 F 05/09/21 12:36 Pulse 77 05/09/21 12:36 Resp 18 05/09/21 12:36 BP 124/77 05/09/21 12:42 Pulse Ox 100 05/09/21 12:36 Intake & Output 05/08/21 05/09/21 05/09/21 18:59 06:59 18:59 Weight 56.699 kg - Constitutional General appearance: Present: cooperative - EENT Eyes: Present: EOMI ENT: Present: hearing grossly normal - Neck Neck: Present: normal ROM - Respiratory Respiratory: bilateral: CTA - Cardiovascular Rhythm: regular Heart sounds: normal: S1, S2 - Gastrointestinal General gastrointestinal: Present: soft - Integumentary Integumentary: Present: normal turgor - Musculoskeletal Musculoskeletal: Present: gait normal - Psychiatric Psychiatric: Present: A&O x's 3, appropriate affect, intact judgment & insight - Additional findings Additional findings: 6 examination: Bra: 34B Inspection: Left breast slightly swollen with radiation and postoperative changes Palpation: Right breast: Multiple positional exam no dominant masses or nodules of concern Right axilla: No adenopathy of concern Left breast: Postoperative and radiation changes no dominant masses or nodules of concern mildly swollen compared to the other side but nothing of concern Left axilla: No adenopathy of concern Assessment and Plan Assessment: Impression: 1. Patient status post left breast lumpectomy and sentinel node biopsy, radiation therapy, chemotherapy, at this time she has been given a prescription for tamoxifen but she is not started it yet 2. MRI studies at Dr. Love's office a pending reports 3. Report from Dr. Porter [id number] reviewed Plan: 1. Patient encouraged to take tamoxifen after discussion with Dr. Porter 2. Repeat bilateral mammogram 07-23-21 3. Follow-up after bilateral mammogram 4. Follow-up any questions or concerns Cc: Dr. Porter, Dr. Bey
== END | disposition home or self-care (01) ==
LOC: WWCWWP 12:29
PROVIDERS: ATTEND Surgery
DX: Z53.9 Procedure and treatment not carried out, unspecified reason (principal)

== ENCOUNTER → 2021-06-27 | Outpatient (CLI) | payer OTHER ==
[2021-06-27 16:40] VITALS: BP 100/67; PULSE 71; RESP 16; TEMP 97.8
--- NOTE | 2021-06-27 16:56 | P.PN ---
Subjective Progress Note Date: 06/27/21 Principal diagnosis: new lump left breast stage IA left breast cancer Gemma is a 40-year-old white female who underwent an ultrasound guided core biopsy on . This was of the left breast upper outer quadrant region. 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 The lesion is approximately 1.5 cm on ultrasound. It was not able to be seen on mammogram but was found on ultrasound. The lesion is ER +100%, OR +10%, HER-2 negative, grade 3. This is a stage IA lesion. She also underwent an MRI of both breasts which revealed the lesion of concern noted in the left breast. No lesions of concern were noted otherwise in either breast. She also underwent Oncotype testing her Oncotype score was 22. She underwent genetic testing which was negative. Her case was presented at tumor board and the recommendation was to proceed with lumpectomy and sentinel node biopsy prior to any neoadjuvant chemotherapy. The patient's family history is positive for a paternal grandmother having had breast cancer. She underwent a left partial mastectomy on . [place] lymph node biopsy was negative. Margins were negative. She has finished a course of chemotherapy in December 2020. Completed radiation therapy on 02/19/2021. She was given a pre scription for Tamoxifen however she has not started it yet as she is concerned about the side effects. Today she states she is feeling well. She states over the last week her left breast feels swollen and she has some discomfort under her arm. She has not noted any new lumps masses or nodules in either breast. She did have an MRI of her head and C-spine as well as of her lumbar spine. Those were done at Dr. Jefferson's office, she sees him secondary to chronic migraines. Additional studies of the thoracic spine were done. She had a computed tomography scan of the thoracic spine performed on and compared to the outside MRI report. No suspicious lytic or sclerotic lesions were noted at the T8 vertebrae. Medical oncology note from 03-05-21 reviewed. 06-27-21 The patient states she noted a new lump in her left breast two weeks ago. It has not changed in size. She has not had a mammogram since she finished her treatment. The lump does not hurt. It has not changed is size. Family history: Paternal grandmother: Breast cancer Hormonal history: Menarche: 12 M1 breast-fed: Yes, first child born at 23 Menstrual periods Regular control pills: No had a tubal ligation Surgical history: Tubal ligation D&C left breast lumpectomy and SNB Medical history: Migraines Social history: Nicotine: Negative Alcohol: Negative Drugs: Negative Review of systems: HEENT headaches; recent tooth extraction Breast as per HPI Cardiovascular: Negative Respiratory: Negative GI: Negative : Negative Musculoskeletal: Negative Neurologic: Negative Psychiatric: Anxiety Endocrine: Negative Objective - Vital Signs Vital signs: Vital Signs Temp 97.8 F 06/27/21 16:36 Pulse 71 06/27/21 16:36 Resp 16 06/27/21 16:36 BP 100/67 06/27/21 16:36 Pulse Ox 100 06/27/21 16:36 Intake & Output 06/26/21 06/27/21 06/27/21 18:59 06:59 18:59 Weight 56.699 kg - Constitutional General appearance: Present: cooperative - EENT Eyes: Present: EOMI ENT: Present: hearing grossly normal - Neck Neck: Present: normal ROM - Respiratory Respiratory: bilateral: CTA - Cardiovascular Rhythm: regular - Integumentary Integumentary: Present: normal turgor - Musculoskeletal Musculoskeletal: Present: gait normal - Psychiatric Psychiatric: Present: A&O x's 3, appropriate affect, intact judgment & insight - Additional findings Additional findings: Breast examination: Examination is made of the left breast Inspection: Incisions clean and dry Palpation: Between the incision for the lumpectomy and the axilla there is approximately and 6 mm area of increased nodularity which is new over the past 2 weeks there is mild erythema over this site it is tender to palpation Axilla: No adenopathy of concern Right breast: No dominant masses or nodules of concern right axilla: no adenopathy of concern Assessment and Plan Assessment: Impression: new Nodularity of concern left breast Patient was given prescription for tamoxifen but is opted not to started at this time Plan: Ultrasound core biopsy area of nodularity left breast follow-up after this Encouraged patient to start tamoxifen CC: Dr. Bey
== END | disposition home or self-care (01) ==
LOC: WWCWWP 16:15
PROVIDERS: ATTEND Surgery
DX: Z53.9 Procedure and treatment not carried out, unspecified reason (principal)

== ENCOUNTER → 2021-07-05 | Day surgery (SDC) | payer OTHER ==
--- NOTE | 2021-07-05 11:09 | USB ---
Reason for exam: additional evaluation requested from abnormal screening. History: Patient has history of breast cancer at age 39. Family history of breast cancer in paternal grandmother at age 70. Chemotherapy, October 2020. Radiation therapy, October 2020. Malignant US breast localization LT, September 11, 2020. Lumpectomy of the left breast, September 11, 2020. Malignant US biopsy breast VAD LT of the left breast, July 25, 2020. US Breast Limited LT Left limited breast ultrasound including focal area of concern, retroareolar and axilla demonstrates a 0.5 x 0.6 x 0.3cm oval, cystic lesion at 1 o'clock BB, a 0.6 x 0.6 x 0.3cm oval, irregular, complex, cystic lesion at 1 o'clock BB, a 0.5 x 0.9 x 0.3cm oval, irregular, cystic cluster at 1 o'clock BB, a 0.2 x 0.3 x 0.3cm oval, cystic lesion at 2 o'clock and a 1.0 x 1.3 x 0.6cm irregular, cystic lesion versus fluid at 2 o'clock scar area. These results were verbally communicated with the patient and result sheet given to the patient on 07/05/21. ASSESSMENT: Probably benign, BI-RAD 3 RECOMMENDATION: Ultrasound of the left breast in 6 months. Manage patient on a clinical basis.
== END ==
LOC: RADUSWWP 09:07
PROVIDERS: ATTEND Surgery
DX: N60.12 Diffuse cystic mastopathy of left breast (principal); N63.0 Unspecified lump in unspecified breast; Z85.3 Personal history of malignant neoplasm of breast; Z80.3 Family history of malignant neoplasm of breast

== ENCOUNTER → 2021-07-05 | Outpatient (CLI) | payer OTHER ==
--- NOTE | 2021-07-05 11:07 | MM ---
Reason for exam: clinical finding. Last mammogram was performed 10 months ago. History: Patient has history of breast cancer at age 39. Family history of breast cancer in paternal grandmother at age 70. Chemotherapy, October 2020. Radiation therapy, October 2020. Malignant US breast localization LT, September 11, 2020. Lumpectomy of the left breast, September 11, 2020. Malignant US biopsy breast VAD LT of the left breast, July 25, 2020. Physical Findings: A clinical breast exam by your physician is recommended on an annual basis and results should be correlated with mammographic findings. MG Diagnostic Mammo w CAD KENIA Bilateral CC and MLO view(s) were taken. Prior study comparison: September 11, 2020, left breast MG diagnostic mammo LT wo CAD. July 25, 2020, left breast MG diagnostic mammo LT wo CAD. The breast tissue is heterogeneously dense. This may lower the sensitivity of mammography. There is no discrete abnormality including area of concern. Post operative lumpectomy and radiation therapy changes upper outer left breast. These results were verbally communicated with the patient and result sheet given to the patient on 07/05/21. ASSESSMENT: Incomplete: need additional imaging evaluation, BI-RAD 0 RECOMMENDATION: Ultrasound of the left breast.
== END | disposition home or self-care (01) ==
LOC: RADMAMWWP 09:04
PROVIDERS: ATTEND Surgery
DX: Z85.3 Personal history of malignant neoplasm of breast (principal)
CPT/HCPCS: 77066

== ENCOUNTER → 2021-07-25 | Outpatient (CLI) | payer OTHER ==
[2021-07-25 13:02] VITALS: BP 99/61; PULSE 59; RESP 18; TEMP 97.9
--- NOTE | 2021-07-25 13:27 | P.PN ---
Subjective Progress Note Date: 07/25/21 Principal diagnosis: stage IA left breast cancer stage IA left breast cancer Gemma is a 40-year-old white female who underwent an ultrasound guided core biopsy on . This was of the left breast upper outer quadrant region. 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 The lesion was approximately 1.5 cm on ultrasound. It was not able to be seen on mammogram but was found on ultrasound. The lesion is ER +100%, OH +10%, HER-2 negative, grade 3. This is a stage IA lesion. She also underwent an MRI of both breasts which revealed the lesion of concern noted in the left breast. No lesions of concern were noted otherwise in either breast. She also underwent Oncotype testing her Oncotype score was 22. She underwent genetic testing which was negative. Her case was presented at tumor board and the recommendation was to proceed with lumpectomy and sentinel node biopsy prior to any neoadjuvant chemotherapy. The patient's family history is positive for a paternal grandmother having had breast cancer. She underwent a left partial mastectomy on . [place] lymph node biopsy was negative. Margins were negative. She has finished a course of chemotherapy in December 2020. Completed radiation therapy on 02/19/2021. She was given a prescription for Tamoxifen however she has not started it yet as she is concerned about the side effects. Today she states she is feeling well. She states over the last week her left breast feels swollen and she has some discomfort under her arm. She has not noted any new lumps masses or nodules in either breast. She did have an MRI of her head and C-spine as well as of her lumbar spine. Those were done at Dr. Jefferson's office, she sees him secondary to chronic migraines. Additional studies of the thoracic spine were done. She had a computed tomography scan of the thoracic spine performed on and compared to the outside MRI report. No suspicious lytic or sclerotic lesions were noted at the T8 vertebrae. Medical oncology note from 03-05-21 reviewed. 06-27-21 The patient states she noted a new lump in her left breast two weeks ago. It has not changed in size. She has not had a mammogram since she finished her treatment. The lump does not hurt. It has not changed is size. Patient states that she was scheduled for biopsy of that site however when she came for the biopsy was canceled pelvis on July 05. She did on that date have a bilateral mammogram which recommended an ultrasound of the left breast and ultrasound was performed on the same day which revealed only cystic changes. Was felt to be benign BIRADS 3 and repeat ultrasound in 6 months was recomm ended. Patient states that the lump has not changed in size but her breast is feels more swollen. She states it is painful. She does not have any fever or chills. She has opted not to take tamoxifen. Family history: Paternal grandmother: Breast cancer Hormonal history: Menarche: 12 M1 breast-fed: Yes, first child born at 23 Menstrual periods Regular control pills: No had a tubal ligation Surgical history: Tubal ligation D&C left breast lumpectomy and SNB Medical history: Migraines Social history: Nicotine: Negative Alcohol: Negative Drugs: Negative Review of systems: HEENT headaches; recent tooth extraction Breast as per HPI Cardiovascular: Negative Respiratory: Negative GI: Negative : Negative Musculoskeletal: Negative Neurologic: Negative Psychiatric: Anxiety Endocrine: Negative Objective - Vital Signs Vital signs: Vital Signs Temp 97.9 F 07/25/21 13:00 Pulse 59 L 07/25/21 13:00 Resp 18 07/25/21 13:00 BP 99/61 07/25/21 13:00 Pulse Ox 100 07/25/21 13:00 Intake & Output 07/24/21 07/25/21 07/25/21 18:59 06:59 18:59 Weight 56.699 kg - Exam BMI: 22.1 - Constitutional General appearance: Present: cooperative - EENT Eyes: Present: EOMI ENT: Present: hearing grossly normal - Neck Neck: Present: normal ROM - Respiratory Respiratory: bilateral: CTA - Cardiovascular Rhythm: regular Heart sounds: normal: S1, S2 - Gastrointestinal General gastrointestinal: Present: soft - Integumentary Integumentary: Present: normal turgor - Musculoskeletal Musculoskeletal: Present: gait normal - Psychiatric Psychiatric: Present: A&O x's 3, appropriate affect, intact judgment & insight - Additional findings Additional findings: Breast Exam: BRA: 34B inspection: Left breast swollen compared to right breast, incisions clean and dry well-healed Palpation: Right breast: Multiple positional exam no dominant masses or nodules of concern Right axilla: No adenopathy of concern Left breast: Multi-positional exam fibrocystic changes no dominant masses or nodules of concern Left axilla: No adenopathy of concern Assessment and Plan Assessment: Impression: Patient status post left breast lumpectomy and radiation therapy and chemotherapy no evidence of recurrent cancer Recent left breast ultrasound and bilateral mammogram and 3422 no lesions of concern to warrant intervention however on the ultrasound cystic changes were noted and a repeat ultrasound in 6 months was recommended Plan: Patient states she has difficulty moving her left arm Patient complains of discomfort in the left breast Recommend breast MRI if possible Consults physical therapy regarding discomfort in her left arm CC: Dr. Bey
== END | disposition home or self-care (01) ==
LOC: WWCWWP 12:16
PROVIDERS: ATTEND Surgery
DX: Z53.9 Procedure and treatment not carried out, unspecified reason (principal)

== ENCOUNTER → 2021-09-02 | Outpatient (CLI) | payer OTHER ==
--- NOTE | 2021-09-04 14:44 | BMR ---
EXAMINATION TYPE: MR breast BILAT wo/w con DATE OF EXAM: 09/02/2021 COMPARISON: Prior MRI bilateral breast August 17, 2020 BI-RADS 6 left breast. BI-RADS 2 right breast. Diagnostic bilateral breast mammogram July 05, 2021 BI-RADS 0. Left breast diagnostic Limited ultraso und July 05, 2021 BI-RADS 3. HISTORY: History breast ca, new lump, left breast around 2:00 TECHNIQUE: A series of fat and water weighted images in the long and short axis views of both breasts are obtained in conjunction with dynamic contrast MRI with subtraction technique. The patient was i njected with 5.5 mL intravenous Gadavist gadolinium contrast. Three-dimensional and additional post processing imaging is created on independent workstation and reviewed during official interpretation of this study. FINDINGS: There is redemonstration of extremely dense fibroglandular tissue bilaterally. Axial and co diann T2 and STIR weighted images show no significant cystic change or focal fluid collections in eit her breast. No suspicious axillary adenopathy is identified bilaterally. Scar tissue in the left axil la is now present. Dynamic postcontrast imaging shows asymmetric moderate to severe background enhanc ement throughout dense fibroglandular tissue in the left breast with less prominent right-sided enhan cement. Delayed dynamic postcontrast imaging shows no concerning internal mammary adenopathy. With regards to the right breast, no abnormal skin thickening is seen. No pathologic enhancement or e nhancing mass greater than 5 mm mass is noted. Stable 3 mm focus of rounded enhancement anterior medi al left breast image 610 series 701. Similar sub-5 mm focus of enhancement in granular tissue upper o uter aspect anterior to middle depth right breast noted image 115 series 801 unchanged from prior. Th e chest wall is intact. With regards to the left breast there is artifact from surgical clip noted posteriorly in the upper o uter quadrant image 908 series 701. Posttreatment change to the left breast with trabeculation and mi ld to moderate skin thickening is now present. No new pathologic enhancement or enhancing masses. The chest wall is intact. IMPRESSION: No MRI evidence for new invasive malignancy in either breast. Presumed posttreatment dixon ges to left breast. BI-RADS 2 benign findings both breasts Recommendation: Consider diagnostic left breast ultrasound follow-up January 2022 as recommended on most recent ultrasound to confirm scarring or posttreatment change. Patient due for annual diagnosti c bilateral breast mammogram July 2022.
== END | disposition home or self-care (01) ==
LOC: RADMRIMAIN 07:30
PROVIDERS: ATTEND Surgery
DX: Z85.3 Personal history of malignant neoplasm of breast (principal)
CPT/HCPCS: 77049; C8937; A9585

== ENCOUNTER → 2021-09-12 | Outpatient (CLI) | payer OTHER ==
[2021-09-12 15:04] VITALS: BP 106/67; PULSE 65; RESP 17; TEMP 98.9
--- NOTE | 2021-09-12 15:28 | P.PN ---
Subjective Progress Note Date: 09/12/21 Principal diagnosis: Left breast stage IA invasive ductal carcinoma stage IA left breast cancer Gemma is a 40-year-old white female who underwent an ultrasound guided core biopsy on . This was of the left breast upper outer quadrant region. 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 The lesion was approximately 1.5 cm on ultrasound. It was not able to be seen on mammogram but was found on ultrasound. The lesion is ER +100%, CO +10%, HER-2 negative, grade 3. This is a stage IA lesion. She also underwent an MRI of both breasts which revealed the lesion of concern noted in the left breast. No lesions of concern were noted otherwise in either breast. She also underwent Oncotype testing her Oncotype score was 22. She underwent genetic testing which was negative. Her case was presented at tumor board and the recommendation was to proceed with lumpectomy and sentinel node biopsy prior to any neoadjuvant chemotherapy. The patient's family history is positive for a paternal grandmother having had breast cancer. She underwent a left partial mastectomy on . [place] lymph node biopsy was negative. Margins were negative. She has finished a course of chemotherapy in December 2020. Completed radiation therapy on 02/19/2021. She was given a prescription for Tamoxifen however she has not started it yet as she is concerned about the side effects. Today she states she is feeling well. She states over the last week her left breast feels swollen and she has some discomfort under her arm. She has not noted any new lumps masses or nodules in either breast. She did have an MRI of her head and C-spine as well as of her lumbar spine. Those were done at Dr. Jefferson's office, she sees him secondary to chronic migraines. Additional studies of the thoracic spine were done. She had a computed tomography scan of the thoracic spine performed on and compared to the outside MRI report. No suspicious lytic or sclerotic lesions were noted at the T8 vertebrae. Medical oncology note from 03-05-21 reviewed. 06-27-21 The patient states she noted a new lump in her left breast two weeks ago. It has not changed in size. She has not had a mammogram since she finished her treatment. The lump does not hurt. It has not changed is size. Patient states that she was scheduled for biopsy of that site however when she came for the biopsy was canceled on July 05. She did on that date have a bilateral mammogram which recommended an ultrasound of the left breast and ultrasound was performed on the same day which revealed only cystic changes. Was felt to be benign BIRADS 3 and repeat ultrasound in 6 months was recommended. Patient states that the lump has not changed in size but her breast is feels more swollen. She states it is painful. She does not have any fever or chills. She has opted not to take tamoxifen. 09-12-21 Bilateral MRI was done on 09-02-21 no MRI evidence of any malignancy in either breast She continues to fill nodularity in her left breast in the upper outer quadrant. It has not changed since she was last seen. Breasts continues to be swollen relative to the contralateral breast. recommended left breast ultrasound January 2022 bilateral mammogram July 2022 Family history: Paternal grandmother: Breast cancer Hormonal history: Menarche: 12 M1 breast-fed: Yes, first child born at 23 Menstrual periods Regular control pills: No had a tubal ligation Surgical history: Tubal ligation D&C left breast lumpectomy and SNB Medical history: Migraines Social history: Nicotine: Negative Alcohol: Negative Drugs: Negative Review of systems: HEENT headaches; recent tooth extraction Breast as per HPI Cardiovascular: Negative Respiratory: Negative GI: Negative : Negative Musculoskeletal: Negative Neurologic: Negative Psychiatric: Anxiety Endocrine: Negative Objective - Vital Signs Vital signs: Vital Signs Temp 98.9 F 09/12/21 15:02 Pulse 65 09/12/21 15:02 Resp 17 09/12/21 15:02 BP 106/67 09/12/21 15:02 Pulse Ox 100 09/12/21 15:02 Intake & Output 09/11/21 09/12/21 09/12/21 18:59 06:59 18:59 Weight 56.699 kg - Exam BMI 22.1 - Constitutional General appearance: Present: cooperative - EENT Eyes: Present: EOMI ENT: Present: hearing grossly normal - Neck Neck: Present: normal ROM - Respiratory Respiratory: bilateral: CTA - Cardiovascular Rhythm: regular Heart sounds: normal: S1, S2 - Integumentary Integumentary: Present: normal turgor - Musculoskeletal Musculoskeletal: Present: gait normal - Psychiatric Psychiatric: Present: A&O x's 3, appropriate affect, intact judgment & insight - Additional findings Additional findings: Breast examination: Block: 34B Inspection: Asymmetry related to prior left breast lumpectomy and radiation, the left breast appears swollen relative to the right breast Palpation: Right breast: Multi-positional exam fibrocystic changes no dominant masses or nodules of concern Right axilla: No adenopathy of concern Left breast: Scar is well-healed from prior surgery, postop changes, fullness between the 2 scars which is most likely post radiation and post surgical scarring otherwise no dominant masses or nodules of concern Left axilla: No adenopathy of concern Assessment and Plan Assessment: Impression: No evidence of recurrent left breast cancer Persistent nodularity left breast between the area of 2 scars felt to be most likely post treatment changes Breast MRI no lesions of concern from 5221 Plan: Core biopsy area of thickening left breast secondary to persistence and to rule out any recurrent cancer. Repeat left breast ultrasound in January Repeat bilateral mammogram in July 2021 Continue to follow with radiation oncology Patient is opted not to take tamoxifen at this time Cc: Dr. Bey
== END | disposition home or self-care (01) ==
LOC: WWCWWP 14:54
PROVIDERS: ATTEND Surgery
DX: Z53.9 Procedure and treatment not carried out, unspecified reason (principal)

== ENCOUNTER → 2021-10-10 | Outpatient (CLI) | payer OTHER ==
[2021-10-10 13:43] VITALS: BP 104/69; PULSE 62; RESP 16; TEMP 97.7
--- NOTE | 2021-10-10 14:22 | P.PCN ---
Date of Procedure: 10/10/21 Preoperative Diagnosis: Area of fullness in the 3 o'clock position left breast Postoperative Diagnosis: Same Procedure(s) Performed: Core biopsy area of concern left breast 3:00 upper outer quadrant region Anesthesia: local Surgeon: Denise Pham Pathology: other (Breast tissue) Condition: stable Disposition: same day Indications for Procedure: Area of fullness left breast upper outer quadrant 3:00 Operative Findings: Dense breast tissue Description of Procedure: There is concern in the left breast was prepped using Betadine. 1% plain was used to anesthetize the area of concern. A small sarahy was made in the skin. 18-gauge Bard core biopsy disposable instrument was used to obtain 3 specimens. Specimens are sent to pathology. A Steri-Strip was placed on the site. The patient will follow up next week for results. The patient tolerated the procedure in stable condition. CC: Dr. Bey
== END ==
LOC: WWCWWP 12:55
PROVIDERS: ATTEND Surgery
DX: R92.2 Inconclusive mammogram (principal)

== ENCOUNTER → 2021-10-17 | Outpatient (CLI) | payer OTHER ==
[2021-10-17 11:51] VITALS: BP 111/72; PULSE 68; RESP 17; TEMP 98.5
--- NOTE | 2021-10-17 12:16 | P.PN ---
Progress Note - Text Progress Note Date: 10/17/21 Left breast stage IA invasive ductal carcinoma stage IA left breast cancer Gemma is a 40-year-old white female who underwent an ultrasound guided core biopsy on . This was of the left breast upper outer quadrant region. 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 The lesion was approximately 1.5 cm on ultrasound. It was not able to be seen on mammogram but was found on ultrasound. The lesion is ER +100%, [place] +10%, HER-2 negative, grade 3. This is a stage IA lesion. She also underwent an MRI of both breasts which revealed the lesion of concern noted in the left breast. No lesions of concern were noted otherwise in either breast. She also underwent Oncotype testing her Oncotype score was 22. She underwent genetic testing which was negative. Her case was presented at tumor board and the recommendation was to proceed with lumpectomy and sentinel node biopsy prior to any neoadjuvant chemotherapy. The patient's family history is positive for a paternal grandmother having had breast cancer. She underwent a left partial mastectomy on . [place] lymph node biopsy was negative. Margins were negative. She has finished a course of chemotherapy in December 2020. Completed radiation therapy on 02/19/2021. She was given a prescription for Tamoxifen however she has not started it yet as she is concerned about the side effects. Today she states she is feeling well. She states over the last week her left breast feels swollen and she has some discomfort under her arm. She has not noted any new lumps masses or nodules in either breast. She did have an MRI of her head and C-spine as well as of her lumbar spine. Those were done at Dr. Jefferson's office, she sees him secondary to chronic migraines. Additional studies of the thoracic spine were done. She had a computed tomography scan of the thoracic spine performed on and compared to the outside MRI report. No suspicious lytic or sclerotic lesions were noted at the T8 vertebrae. Medical oncology note from 03-05-21 reviewed. 06-27-21 The patient states she noted a new lump in her left breast two weeks ago. It has not changed in size. She has not had a mammogram since she finished her treatment. The lump does not hurt. It has not changed is size. Patient states that she was scheduled for biopsy of that site however when she came for the biopsy was canceled on July 05. She did on that date have a bilateral mammogram which recommended an ultrasound of the left breast and ultrasound was performed on the same day which revealed only cystic changes. Was felt to be benign BIRADS 3 and repeat ultrasound in 6 months was recommended. Patient states that the lump has not changed in size but her breast is feels more swollen. She states it is painful. She does not have any fever or chills. She has opted not to take tamoxifen. 09-12-21 Bilateral MRI was done on 09-02-21 no MRI evidence of any malignancy in either breast She continues to fill nodularity in her left breast in the upper outer quadrant. It has not changed since she was last seen. Breasts continues to be swollen relative to the contralateral breast. 10-17-21 The patient underwent a core biopsy of the palpable area of concern in the left breast on 10-11-21. Her pathology was fibrous scar, and no cancer. Exam: Biopsy site clean and dry Plan: Follow-up January left breast ultrasound, patient will follow-up sooner any questions or concerns CC: Dr. Bey
== END | disposition home or self-care (01) ==
LOC: WWCWWP 11:22
PROVIDERS: ATTEND Surgery
DX: Z53.9 Procedure and treatment not carried out, unspecified reason (principal)

== ENCOUNTER → 2022-01-16 | Outpatient (CLI) | payer OTHER ==
--- NOTE | 2022-01-16 09:01 | USB ---
Reason for Exam: Follow-up at short interval from prior study. Patient History: Menarche at age 12. First Full-Term at age 23. Breast cancer, age 39. 09/11/2020, Lumpectomy on the Left side. Malignant Core Biopsy. 07/25/2020, Malignant Core Biopsy on the left side. 10/2020, Chemotherapy. 10/2020, Radiation Therapy. Paternal grandmother had breast cancer, age 70. Technique: Method: Targeted. Prior Study Comparison: 07/25/2020 Left Diagnostic Mammogram, [facility]. 09/11/2020 Left Diagnostic Mammogram, [facility]. 07/05/2021 Bilateral Diagnostic Mammogram, [facility]. Findings: The upper outer quadrant of the left breast, the axilla of the left breast and the retroareolar of the left breast were scanned. Technologist brown 3 mm benign thin-walled cyst at 1:00 position with adjacent similar small thin-walled cysts noted similar to prior. At 2:00 position there is a avascular irregular hypoechoic area or scar tissue redemonstrated. No suspicious new solid or cystic mass. Overall Assessment: Benign, BI-RAD 2 Management: Diagnostic Mammogram of both breasts in 6 months. Back on schedule. Patient told of findings results at time of dictation. Electronically signed and approved by: Campos Posada M.D.
== END | disposition home or self-care (01) ==
LOC: RADUSWWP 08:25
PROVIDERS: ATTEND Surgery
DX: N60.02 Solitary cyst of left breast (principal); Z85.3 Personal history of malignant neoplasm of breast; Z80.3 Family history of malignant neoplasm of breast

== ENCOUNTER → 2023-09-23 | Outpatient (CLI) | payer OTHER ==
[2023-09-23 15:32] VITALS: BP 122/84; PULSE 62; RESP 16; TEMP 98.3
== END ==
LOC: WWCWWP 09:51
PROVIDERS: ATTEND Surgery
DX: R92.8 Other abnormal and inconclusive findings on diagnostic imaging of breast (principal); Z85.3 Personal history of malignant neoplasm of breast; Z80.3 Family history of malignant neoplasm of breast; Z98.890 Other specified postprocedural states; Z48.817 Encounter for surgical aftercare following surgery on the skin and subcutaneous tissue

== ENCOUNTER → 2023-09-23 | Outpatient (CLI) | payer OTHER ==
--- NOTE | 2023-09-23 14:37 | MM ---
Reason for Exam: Hx of breast cancer, conservation therapy. Last mammogram was performed 1 year(s) and 2 month(s) ago. Patient History: Menarche at age 12. First Full-Term at age 23. Breast cancer, left, age 39. 09/11/2020, Lumpectomy on the Left side. Malignant Core Biopsy. 07/25/2020, Malignant Core Biopsy on the left side. 10/2020, Chemotherapy. 10/2020, Radiation Therapy. Paternal grandmother had breast cancer, age 70. Last menstrual period: 06/04/2023 Tissue Density: The breasts are extremely dense, which lowers the sensitivity of mammography. Findings: Analyzed By CAD. The pattern is symmetrical. Post surgical changes are evident within the left axillary region. No suspicious groups of microcalcifications, spiculated or lobular masses, architectural distortion or other secondary signs of malignancy are mammographically apparent. Overall Assessment: Benign, BI-RAD 2 Management: Diagnostic Breast Ultrasound of both breasts. A negative mammogram report should not preclude additional follow up of suspicious palpable abnormalities. Patient should continue monthly self breast exam. A clinical breast exam by your physician is recommended on an annual basis and results should be correlated with mammographic findings. Note on Deborah scores and lifetime risk: 1. A Deborah score greater than 3% is considered moderate risk. If this is the case, consider specialist referral to assess eligibility for a risk reducing agent. 2. If overall lifetime risk for the development of breast cancer is 20% or higher, the patient may qualify for future screening with alternating mammogram and breast MRI. Electronically signed and approved by: Mark Ambrose D.O. Radiologis
--- NOTE | 2023-09-23 15:49 | P.PN ---
Subjective Progress Note Date: 09/23/23 Principal diagnosis: left breast stage I invasive ductal cancer 09/12/21 Principal diagnosis: Left breast stage IA invasive ductal carcinoma stage IA left breast cancer Gemma is a 40-year-old white female who underwent an ultrasound guided core biopsy on . This was of the left breast upper outer quadrant region. 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 The lesion was approximately 1.5 cm on ultrasound. It was not able to be seen on mammogram but was found on ultrasound. The lesion is ER +100%, HI +10%, HER-2 negative, grade 3. This is a stage IA lesion. She also underwent an MRI of both breasts which revealed the lesion of concern noted in the left breast. No lesions of concern were noted otherwise in either breast. She also underwent Oncotype testing her Oncotype score was 22. She underwent genetic testing which was negative. Her case was presented at tumor board and the recommendation was to proceed with lumpectomy and sentinel node biopsy prior to any neoadjuvant chemotherapy. The patient's family history is positive for a paternal grandmother having had breast cancer. She underwent a left partial mastectomy on . [place] lymph node biopsy was negative. Margins were negative. She has finished a course of chemotherapy in December 2020. Completed radiation therapy on 02/19/2021. She was given a prescription for Tamoxifen however she has not started it yet as she is concerned about the side effects. Today she states she is feeling well. She states over the last week her left breast feels swollen and she has some discomfort under her arm. She has not noted any new lumps masses or nodules in either breast. She did have an MRI of her head and C-spine as well as of her lumbar spine. Those were done at Dr. Jefferson's office, she sees him secondary to chronic migraines. Additional studies of the thoracic spine were done. She had a computed tomography scan of the thoracic spine performed on and compared to the outside MRI report. No suspicious lytic or sclerotic lesions were noted at the T8 vertebrae. Medical oncology note from 03-05-21 reviewed. 06-27-21 The patient states she noted a new lump in her left breast two weeks ago. It has not changed in size. She has not had a mammogram since she finished her treatment. The lump does not hurt. It has not changed is size. Patient states that she was scheduled for biopsy of that site however when she came for the biopsy was canceled on July 05. She did on that date have a bilateral mammogram which recommended an ultrasound of the left breast and ultrasound was performed on the same day which revealed only cystic changes. Was felt to be benign BIRADS 3 and repeat ultrasound in 6 months was recommended. Patient states that the lump has not changed in size but her breast is feels more swollen. She states it is painful. She does not have any fever or chills. She has opted not to take tamoxifen. 09-12-21 Bilateral MRI was done on 09-02-21 no MRI evidence of any malignancy in either breast She continues to fill nodularity in her left breast in the upper outer quadrant. It has not changed since she was last seen. Breasts continues to be swollen relative to the contralateral breast. recommended left breast ultrasound January 2022 bilateral mammogram July 2022 09-23-23 Bilateral mammogram and left breast ultrasound on 09-23-23 BIRAD 2 repeat mammogram in 1 year personally reviewed with DR. Lindsey She is not complaining of any new lumps masses or nodules of concern in either breast. Family history: Paternal grandmother: Breast cancer Hormonal history: Menarche: 12 M1 breast-fed: Yes, first child born at 23 Menstrual periods Regular control pills: No had a tubal ligation Surgical history: Tubal ligation D&C left breast lumpectomy and SNB Medical history: Migraines Social history: Nicotine: Negative Alcohol: Negative Drugs: Negative Review of systems: HEENT headaches; recent tooth extraction Breast as per HPI Cardiovascular: Negative Respiratory: Negative GI: Negative : Negative Musculoskeletal: Negative Neurologic: Negative Psychiatric: Anxiety Endocrine: Negative Objective - Constitutional General appearance: Present: cooperative - EENT Eyes: Present: EOMI ENT: Present: hearing grossly normal - Neck Neck: Present: normal ROM - Respiratory Respiratory: bilateral: CTA - Cardiovascular Rhythm: regular Heart sounds: normal: S1, S2 - Integumentary Integumentary: Present: normal turgor - Musculoskeletal Musculoskeletal: Present: gait normal - Psychiatric Psychiatric: Present: A&O x's 3, appropriate affect, intact judgment & insight - Additional findings Additional findings: Breast examination: Bra: 34B Inspection: Asymmetry related to prior left breast lumpectomy and radiation Palpation: Right breast: Multi-positional exam fibrocystic changes no dominant masses or nodules of concern Right axilla: No adenopathy of concern Left breast: Scar is well-healed from prior surgery, postop changes, patient upper outer quadrant no dominant masses or nodules of concern Left axilla: No adenopathy of concern Assessment and Plan Assessment: Impression: No evidence of recurrent left breast cancer 09-23-23 bilateral mammogram BIRAD 2, personally reviewed with Dr Lindsey, ultrasound left breast benign personally reveiwed with DR. Lindsey Plan: Bilateral mammogram in September 2024 appointment in 6 months Patient is opted not to take tamoxifen at this time
--- NOTE | 2023-09-23 15:51 | USB ---
Reason for Exam: Additional evaluation requested from prior study. Patient History: Menarche at age 12. First Full-Term at age 23. Breast cancer, left, age 39. 09/11/2020, Lumpectomy on the Left side. Malignant Core Biopsy. 07/25/2020, Malignant Core Biopsy on the left side. 10/2020, Chemotherapy. 10/2020, Radiation Therapy. Paternal grandmother had breast cancer, age 70. Technique: Method: Whole Breast Handheld. Prior Study Comparison: 09/11/2020 Left Diagnostic Mammogram, [facility]. 07/05/2021 Bilateral Diagnostic Mammogram, [facility]. 07/08/2022 Bilateral MG 3D diag mammo w/cad KENIA, [facility]. Findings: The whole breast of both breasts, the axilla of both breasts and the retroareolar of both breasts were scanned. Bilateral breasts are examined with real-time linear array sonography. No discrete solid or cystic areas are evident. No suspicious ultrasound findings bilateral breast. Overall Assessment: Negative, BI-RAD 1 Management: Diagnostic Mammogram of both breasts in 1 year. A clinical breast exam by your physician is recommended on an annual basis and results should be correlated with mammographic findings. This exam should not preclude additional follow-up of suspicious palpable abnormalities. Results were given to the patient verbally at the time of exam. Electronically signed and approved by: Mark Amrbose D.O. Radiologis
== END | disposition home or self-care (01) ==
LOC: RADMAMWWP 13:33
PROVIDERS: ATTEND Surgery
DX: R92.343 Mammographic extreme density, bilateral breasts (principal); Z85.3 Personal history of malignant neoplasm of breast; Z80.3 Family history of malignant neoplasm of breast
CPT/HCPCS: 77062; 77066

== ENCOUNTER → 2024-03-18 | Outpatient (CLI) | payer OTHER ==
[2024-03-18 10:36] VITALS: BP 133/85; PULSE 77; RESP 18; TEMP 97.7
--- NOTE | 2024-03-18 11:01 | P.PN ---
Subjective Progress Note Date: 03/18/24 Subjective Progress Note Date: 03-18-24 Principal diagnosis: left breast stage I invasive ductal cancer 09/12/21 Principal diagnosis: Left breast stage IA invasive ductal carcinoma stage IA left breast cancer Gemma is a 40-year-old white female who underwent an ultrasound guided core biopsy on . This was of the left breast upper outer quadrant region. 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 The lesion was approximately 1.5 cm on ultrasound. It was not able to be seen on mammogram but was found on ultrasound. The lesion is ER +100%, AR +10%, HER-2 negative, grade 3. This is a stage IA lesion. She also underwent an MRI of both breasts which revealed the lesion of concern noted in the left breast. No lesions of concern were noted otherwise in either breast. She also underwent Oncotype saad ting her Oncotype score was 22. She underwent genetic testing which was negative. Her case was presented at tumor board and the recommendation was to proceed with lumpectomy and sentinel node biopsy prior to any neoadjuvant chemotherapy. The patient's family history is positive for a paternal grandmother having had breast cancer. She underwent a left partial mastectomy on . [place] lymph node biopsy was negative. Margins were negative. She has finished a course of chemotherapy in December 2020. Completed radiation therapy on 02/19/2021. She was given a prescription for Tamoxifen however she has not started it yet as she is concerned about the side effects. Today she states she is feeling well. She states over the last week her left breast feels swollen and she has some discomfort under her arm. She has not noted any new lumps masses or nodules in either breast. She did have an MRI of her head and C-spine as well as of her lumbar spine. Those were done at Dr. Jefferson's office, she sees him secondary to chronic migraines. Additional studies of the thoracic spine were done. She had a computed tomography scan of the thoracic spine performed on and co mpared to the outside MRI report. No suspicious lytic or sclerotic lesions were noted at the T8 vertebrae. Medical oncology note from 03-05-21 reviewed. 06-27-21 The patient states she noted a new lump in her left breast two weeks ago. It has not changed in size. She has not had a mammogram since she finished her treatment. The lump does not hurt. It has not changed is size. Patient states that she was scheduled for biopsy of that site however when she came for the biopsy was canceled on July 05. She did on that date have a bilateral mammogram which recommended an ultrasound of the left breast and ultrasound was performed on the same day which revealed only cystic changes. Was felt to be benign BIRADS 3 and repeat ultrasound in 6 months was recommended. Patient states that the lump has not changed in size but her breast is feels more swollen. She states it is painful. She does not have any fever or chills. She has opted not to take tamoxifen. 09-12-21 Bilateral MRI was done on 09-02-21 no MRI evidence of any malignancy in either breast She continues to fill nodularity in her left breast in the upper outer quadrant. It has not changed since she was last seen. Breasts continues to be swollen relative to the contralateral breast. recommended left breast ultrasound January 2022 bilateral mammogram July 2022 09-23-23 Bilateral mammogram and left breast ultrasound on 09-23-23 BIRAD 2 repeat mammogram in 1 year personally reviewed with DR. Lindsey She is not complaining of any new lumps masses or nodules of concern in either breast. The patient does complain of a new problem of left breast upper outer quadrant tenderness. The findings of mastodynia are not correlated with any radiographic or changes on physical exam. I suspect this may be related to postsurgical and postradiation changes. Personal review of the mammogram and discussion was had with Dr. Ambrose from radiology, BIRAD 2 repeat mammogram in 1 year. follow up here in 6 months follow up sooner any concerns 03-18-24 Gemma is a 43-year-old white female who underwent an ultrasound guided core biopsy on . This was of the left breast upper outer quadrant region. 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 The lesion was approximately 1.5 cm on ultrasound. It was not able to be seen on mammogram but was found on ultrasound. The lesion is ER +100%, AR +10%, HER-2 negative, grade 3. This is a stage IA lesion. She also underwent an MRI of both breasts which revealed the lesion of concern noted in the left breast. No lesions of concern were noted otherwise in either breast. She also underwent Oncotype testing her Oncotype score was 22. She underwent genetic testing which was negative. Her case was presented at tumor board and the recommendation was to proceed with lumpectomy and sentinel node biopsy prior to any neoadjuvant chemotherapy. The patient's family history is positive for a paternal grandmother having had breast cancer. She underwent a left partial mastectomy on . [place] lymph node biopsy was negative. Margins were negative. She has finished a course of chemotherapy in December 2020. Completed radiation therapy on 02/19/2021. She was given a prescription for Tamoxifen however she has not started it yet as she is concerned about the side effects. She complains today of pain in the lower left breast. She complains of pain in her back. Family history: Paternal grandmother: Breast cancer Hormonal history: Menarche: 12 M1 breast-fed: Yes, first child born at 23 Menstrual periods Regular control pills: No had a tubal ligation Surgical history: Tubal ligation D&C left breast lumpectomy and SNB Medical history: Migraines Social history: Nicotine: Negative Alcohol: Negative Drugs: Negative Review of systems: HEENT headaches; recent tooth extraction Breast as per HPI Cardiovascular: Negative Respiratory: Negative GI: Negative : Negative Musculoskeletal: Negative Neurologic: Negative Psychiatric: Anxiety Endocrine: Negative Objective - Vital Signs Vital signs: Vital Signs Temp 97.7 F 03/18/24 10:33 Pulse 77 03/18/24 10:33 Resp 18 03/18/24 10:33 BP 133/85 03/18/24 10:33 Pulse Ox 100 03/18/24 10:33 FiO2 Intake & Output 03/17/24 03/18/24 03/18/24 18:59 06:59 18:59 Weight 63.503 kg - Constitutional General appearance: Present: cooperative - EENT Eyes: Present: EOMI ENT: Present: hearing grossly normal - Neck Neck: Present: normal ROM - Respiratory Respiratory: bilateral: CTA - Cardiovascular Rhythm: regular Heart sounds: normal: S1, S2 - Integumentary Integumentary: Present: normal turgor - Musculoskeletal Musculoskeletal: Present: gait normal - Psychiatric Psychiatric: Present: A&O x's 3, appropriate affect, intact judgment & insight - Additional findings Additional findings: Breast examination: Bra: 34B Inspection: Asymmetry related to prior left breast lumpectomy and radiation Palpation: Right breast: Multi-positional exam fibrocystic changes no dominant masses or nodules of concern Right axilla: No adenopathy of concern Left breast: Scar is well-healed from prior surgery, postop changes, patient upper outer quadrant no dominant masses or nodules of concern; pain left breast lower outer quadrants Left axilla: No adenopathy of concern Assessment and Plan Assessment: Impression: No evidence of recurrent left breast cancer but pain left lower breast outer pain back and legs/hips 09-23-23 bilateral mammogram BIRAD 2, personally reviewed with Dr Lindsey, ultrasound left breast benign personally reveiwed with DR. Lindsey Plan: bone scan ultrasound left breast lower outer area follow up after the above Bilateral mammogram in September 2024 appointment in 6 months Patient is opted not to take tamoxifen at this time
== END ==
LOC: WWCWWP 08:37
PROVIDERS: ATTEND Surgery
DX: R92.8 Other abnormal and inconclusive findings on diagnostic imaging of breast (principal); N63.10 Unspecified lump in the right breast, unspecified quadrant; N64.4 Mastodynia; M25.551 Pain in right hip; M25.552 Pain in left hip; Z92.3 Personal history of irradiation; Z80.3 Family history of malignant neoplasm of breast; Z85.3 Personal history of malignant neoplasm of breast

== ENCOUNTER → 2024-04-18 | Outpatient (CLI) | payer OTHER ==
--- NOTE | 2024-04-18 10:16 | USB ---
Reason for Exam: Clinical finding. Patient History: Menarche at age 12. First Full-Term at age 23. Breast cancer, left, age 39. 09/11/2020, Lumpectomy on the Left side. Malignant Core Biopsy. 07/25/2020, Malignant Core Biopsy on the left side. 10/2020, Chemotherapy. 10/2020, Radiation Therapy. Paternal grandmother had breast cancer, age 70. Technique: Method: Targeted. Prior Study Comparison: 07/05/2021 Bilateral Diagnostic Mammogram, [facility]. 07/08/2022 Bilateral MG 3D diag mammo w/cad KENIA, [facility]. 09/23/2023 Bilateral MG 3D diag mammo w/cad KENIA, [facility]. Findings: The lower outer quadrant of the left breast, the axilla of the left breast and the retroareolar of the left breast were scanned. A complete US of all four quadrants of the breast and retro-areolar region were reviewed. No solid or cystic masses are identified.. Overall Assessment: Negative, BI-RAD 1 Management: Screening Mammogram of both breasts in 5 months. A clinical breast exam by your physician is recommended on an annual basis and results should be correlated with mammographic findings. This exam should not preclude additional follow-up of suspicious palpable abnormalities. Results were given to the patient verbally at the time of exam. [facility], , 04/18/2024 10:09 AM. Electronically signed and approved by: Sridhar Erickson M.D. Radiologis
== END | disposition home or self-care (01) ==
LOC: RADUSWWP 09:46
PROVIDERS: ATTEND Surgery
DX: N64.4 Mastodynia (principal); Z80.3 Family history of malignant neoplasm of breast; Z85.3 Personal history of malignant neoplasm of breast

== ENCOUNTER → 2024-04-25 | Outpatient (CLI) | payer OTHER ==
--- NOTE | 2024-04-25 15:19 | NM ---
EXAMINATION TYPE: NM bone scan whole body DATE OF EXAM: 04/25/2024 COMPARISON: NONE CLINICAL INDICATION: Female, 43 years old with history of Z85.3 PERSONAL HX BREAST CANCER; Delayed whole-body scanning was performed following the injection of 25.4 mCi Tc 99m MDP. Images acq uired 3 hours post injection. FINDINGS: A faint uptake involving the sternum. Reduced uptake involving the upper rib cage bilaterally likely soft tissue artifact. IMPRESSION: Small focal area of increased uptake involving the sternum is nonspecific. Recommend x-ray correlatio n. [facility], , 04/25/2024 3:17 PM
== END | disposition home or self-care (01) ==
LOC: RADNMMAIN 10:45
PROVIDERS: ATTEND Surgery
DX: Z85.3 Personal history of malignant neoplasm of breast (principal)
CPT/HCPCS: 78306; A9503

== ENCOUNTER → 2024-05-20 | Outpatient (CLI) | payer OTHER ==
[2024-05-20 10:53] VITALS: BP 123/86; PULSE 101; RESP 15; TEMP 97.9
--- NOTE | 2024-05-20 11:06 | P.PN ---
Subjective Progress Note Date: 05/20/24 03-18-24 Gemma is a 43-year-old white female [place] [id number]. This was of the left breast upper outer quadrant region. 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 The lesion was approximately 1.5 cm on ultrasound. It was not able to be seen on mammogram but was found on ultrasound. The lesion is ER +100%, FL +10%, HER-2 negative, grade 3. This is a stage IA lesion. She also underwent an MRI of both breasts which revealed the lesion of concern noted in the left breast. No lesions of concern were noted otherwise in either breast. She also underwent Oncotype testing her Oncotype score was 22. She underwent genetic testing which was negative. Her case was presented at tumor board and the recommendation was to proceed with lumpectomy and sentinel node biopsy prior to any neoadjuvant chemotherapy. The patient's family history is positive for a paternal grandmother having had breast cancer. She underwent a left partial mastectomy on . [place] lymph node biopsy was negative. Margins were negative. She has finished a course of chemotherapy in December 2020. Completed radiation therapy on 02/19/2021. She was given a prescription for Tamoxifen however she has not started it yet as she is concerned about the side effects. She complains today of pain in the lower left breast. She complains of pain in her back. 05-20-24 03-18-2024 she was recommended to have a bone scan and an ultrasound of the left breast. Bone scan 04-25-24 revealed a questionable area in the sternum for which radiographs are recommended. Ultrasound of the left breast was negative BI-RADS 1 She has not noted any changes herself in either breast since her last visit. Family history: Paternal grandmother: Breast cancer Hormonal history: Menarche: 12 M1 breast-fed: Yes, first child born at 23 Menstrual periods Regular control pills: No had a tubal ligation Surgical history: Tubal ligation D&C left breast lumpectomy and SNB Medical history: Migraines Social history: Nicotine: Negative Alcohol: Negative Drugs: Negative Review of systems: HEENT headaches; recent tooth extraction Breast as per HPI Cardiovascular: Negative Respiratory: Negative GI: Negative : Negative Musculoskeletal: Negative Neurologic: Negative Psychiatric: Anxiety Endocrine: Negative Objective - Vital Signs Vital signs: Intake & Output 05/19/24 05/20/24 05/20/24 18:59 06:59 18:59 Weight 63.503 kg - Respiratory Respiratory: bilateral: CTA - Musculoskeletal Musculoskeletal: Present: gait normal - Psychiatric Psychiatric: Present: A&O x's 3, appropriate affect, intact judgment & insight - Additional findings Additional findings: Breast examination: done on 03-18-24 Bra: 34B Inspection: Asymmetry related to prior left breast lumpectomy and radiation Palpation: Right breast: Multi-positional exam fibrocystic changes no dominant masses or nodules of concern Right axilla: No adenopathy of concern Left breast: Scar is well-healed from prior surgery, postop changes, patient upper outer quadrant no dominant masses or nodules of concern; pain left breast lower outer quadrants Left axilla: No adenopathy of concern Assessment and Plan Assessment: Impression: No evidence of recurrent left breast cancer but pain left lower breast outer pain back and legs/hips 09-23-23 bilateral mammogram BIRAD 2, personally reviewed with Dr Lindsey, ultrasound left breast benign personally reveiwed with DR. Lindsey Scan 04-25-2024 questionable area and sternum recommend x-rays Ultrasound left breast BI-RADS 1, no lesions of concern identified Plan: bone scan/ done 04-25-24 small focal area of increased uptake involving the sternum nonspecific recommend x-ray correlation X-rays of sternum to correlate with findings on bone scan; follow up after done ultrasound left breast lower outer area done on 04-25-24 BIRAD 1 Bilateral mammogram in September 2024 follow up after this is done Patient is opted not to take tamoxifen at this time
== END ==
LOC: WWCWWP 10:16
PROVIDERS: ATTEND Surgery
DX: M54.9 Dorsalgia, unspecified (principal); M79.606 Pain in leg, unspecified; R92.8 Other abnormal and inconclusive findings on diagnostic imaging of breast; Z80.3 Family history of malignant neoplasm of breast

== ENCOUNTER → 2024-05-20 | Outpatient (CLI) | payer OTHER ==
--- NOTE | 2024-05-20 12:26 | XR ---
EXAMINATION TYPE: XR sternum DATE OF EXAM: 05/20/2024 COMPARISON: Nuclear medicine bone scan April 25, 2024 CLINICAL INDICATION: Female, 43 years old with history of Z85.3 PERSONAL HISTORY OF MALIGNANT NEOPLAS M OF BREAST; abnormal bone scan TECHNIQUE: 2 views of the sternum are obtained. FINDINGS: I see no obvious destructive, expansile, or sclerotic lesion when correlating with bone sca n the area of concern is near the junction of the manubrium and body of sternum. There is some joint space narrowing at this level. This degenerative change perhaps is causing the mild radiotracer uptak e at this level. IMPRESSION: As above. Consider precautionary repeat nuclear medicine bone scan in 6-12 months time to reassess. [facility], , 05/20/2024 12:23 PM
== END | disposition home or self-care (01) ==
LOC: RADXRMAIN 11:20
PROVIDERS: ATTEND Surgery
DX: Z85.3 Personal history of malignant neoplasm of breast (principal)
CPT/HCPCS: 71120

== ENCOUNTER → 2024-08-01 | Outpatient (CLI) | payer OTHER ==
--- NOTE | 2024-08-01 10:55 | MM ---
Reason for Exam: Clinical finding. Last screening mammogram was performed 10 month(s) ago. Patient History: Menarche at age 12. First Full-Term at age 23. Breast cancer, left, age 39. 09/11/2020, Lumpectomy on the Left side. Malignant Core Biopsy. 07/25/2020, Malignant Core Biopsy on the left side. 10/2020, Chemotherapy. 10/2020, Radiation Therapy. Paternal grandmother had breast cancer, age 70. Tissue Density: The breasts are extremely dense, which lowers the sensitivity of mammography. Findings: Analyzed By CAD. Lumpectomy changes left upper outer quadrant. No distinct mass at the site of clinical concern. Ultrasound correlation advised. No suspicious calcifications within either breast. Overall Assessment: Incomplete: need additional imaging evaluation, BI-RAD 0 Management: Diagnostic Breast Ultrasound of the left breast. . Results were given to the patient verbally at the time of exam. Patient should continue monthly self-breast exams. A clinical breast exam by your physician is recommended on an annual basis. This exam should not preclude additional follow-up of suspicious palpable abnormalities. Note on Deborah scores and lifetime risk: 1. A Deborah score greater than 3% is considered moderate risk. If this is the case, consider specialist referral to assess eligibility for a risk reducing agent. 2. If overall lifetime risk for the development of breast cancer is 20% or higher, the patient may qualify for future screening with alternating mammogram and breast MRI. [facility], , 08/01/2024 10:52 AM. Electronically signed and approved by: Sridhar Erickson M.D. Radiologis
--- NOTE | 2024-08-01 11:24 | USB ---
Reason for Exam: Clinical finding. Patient History: Menarche at age 12. First Full-Term at age 23. Premenopausal. Breast cancer, left, age 39. 09/11/2020, Lumpectomy on the Left side. Malignant Core Biopsy. 07/25/2020, Malignant Core Biopsy on the left side. 10/2020, Chemotherapy. 10/2020, Radiation Therapy. Paternal grandmother had breast cancer, age 70. Technique: Method: Targeted. Prior Study Comparison: 07/05/2021 Bilateral Diagnostic Mammogram, [facility]. 07/08/2022 Bilateral MG 3D diag mammo w/cad KENIA, [facility]. 09/23/2023 Bilateral MG 3D diag mammo w/cad KENIA, [facility]. Findings: The upper outer quadrant of the left breast, the area of palpable concern of the left breast, the axilla of the left breast and the retroareolar of the left breast were scanned. Electronically signed and approved by: Sridhar Erickson M.D. Radiologis
== END | disposition home or self-care (01) ==
LOC: RADMAMWWP 10:21
PROVIDERS: ATTEND Surgery
DX: R92.343 Mammographic extreme density, bilateral breasts (principal); R92.8 Other abnormal and inconclusive findings on diagnostic imaging of breast; Z85.3 Personal history of malignant neoplasm of breast; Z80.3 Family history of malignant neoplasm of breast
CPT/HCPCS: 77062; 77066

== ENCOUNTER → 2024-08-10 | Outpatient (CLI) | payer OTHER ==
[2024-08-10 09:48] VITALS: BP 119/86; PULSE 76; RESP 16; TEMP 97.9
--- NOTE | 2024-08-10 10:14 | P.PN ---
Subjective Progress Note Date: 08/10/24 Principal diagnosis: left breast stage IA IDC 2020 Subjective Progress Note Date: 08-10-24 03-18-24 Gemma is a 43-year-old white female who underwent an ultrasound guided core biopsy on . This was of the left breast upper outer quadrant region. 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 The lesion was approximately 1.5 cm on ultrasound. It was not able to be seen on mammogram but was found on ultrasound. The lesion is ER +100%, OK +10%, HER-2 negative, grade 3. This is a stage IA lesion. She also underwent an MRI of both breasts which revealed the lesion of concern noted in the left breast. No lesions of concern were noted otherwise in either breast. She also underwent Oncotype testing her Oncotype score was 22. She underwent genetic testing which was negative. Her case was presented at tumor board and the recommendation was to proceed with lumpectomy and sentinel node biopsy prior to any neoadjuvant chemotherapy. The patient's family history is positive for a paternal grandmother having had breast cancer. She underwent a left partial mastectomy on . [place] lymph node biopsy was negative. Margins were negative. She has finished a course of chemotherapy in December 2020. Completed radiation therapy on 02/19/2021. She was given a prescription for Tamoxifen however she has not started it yet as she is concerned about the side effects. She complains today of pain in the lower left breast. She complains of pain in her back. 05-20-24 03-18-2024 she was recommended to have a bone scan and an ultrasound of the left breast. Bone scan 04-25-24 revealed a questionable area in the sternum for which radiographs are recommended. Ultrasound of the left breast was negative BI-RADS 1 She has not noted any changes herself in either breast since her last visit. 08-10-24 Gemma is a 43-year-old white female who underwent an ultrasound guided core biopsy on . This was of the left breast upper outer quadrant region. 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 The lesion was approximately 1.5 cm on ultrasound. It was not able to be seen on mammogram but was found on ultrasound. The lesion is ER +100%, OK +10%, HER-2 negative, grade 3. This is a stage IA lesion. She also underwent an MRI of both breasts which revealed the lesion of concern noted in the left breast. No lesions of concern were noted otherwise in either breast. She also underwent Oncotype testing her Oncotype score was 22. She underwent genetic testing which was negative. Her case was presented at tumor board and the recommendation was to proceed with lumpectomy and sentinel node biopsy prior to any neoadjuvant chemotherapy. The patient's family history is positive for a paternal grandmother having had breast cancer. She underwent a left partial mastectomy on . [place] lymph node biopsy was negative. Margins were negative. She has finished a course of chemotherapy in December 2020. Completed radiation therapy on 02/19/2021. bilateral mammogram and left breast ultrasound on 08-01-24 BIRAD 2 At this time she has not complained of any new lumps masses or nodules of concern in either breast. The sternal discomfort which she had in the past has resolved. And she has no new complaints. The patient does have concerns related to asymmetry of the breast related to the cancer surgery. The right nipple areolar complex is lower than the left nipple areolar complex making it hard to find close to fit properly. This causes her distress. Family history: Paternal grandmother: Breast cancer Hormonal history: Menarche: 12 M1 breast-fed: Yes, first child born at 23 Menstrual periods Regular control pills: No had a tubal ligation Surgical history: Tubal ligation D&C left breast lumpectomy and SNB Medical history: Migraines Social history: Nicotine: Negative Alcohol: Negative Drugs: Negative Review of systems: HEENT headaches; recent tooth extraction Breast as per HPI Cardiovascular: Negative Respiratory: Negative GI: Negative : Negative Musculoskeletal: Negative Neurologic: Negative Psychiatric: Anxiety Endocrine: Negative Objective - Vital Signs Vital signs: Vital Signs Temp 97.9 F 08/10/24 09:46 Pulse 76 08/10/24 09:46 Resp 16 08/10/24 09:46 BP 119/86 08/10/24 09:46 Pulse Ox 100 08/10/24 09:46 FiO2 Intake & Output 08/09/24 08/10/24 08/10/24 18:59 06:59 18:59 Weight 63.503 kg - Constitutional General appearance: Present: cooperative - EENT Eyes: Present: EOMI ENT: Present: hearing grossly normal - Neck Neck: Present: normal ROM - Respiratory Respiratory: bilateral: CTA - Cardiovascular Rhythm: regular Heart sounds: normal: S1, S2 - Integumentary Integumentary: Present: normal turgor - Musculoskeletal Musculoskeletal: Present: gait normal - Psychiatric Psychiatric: Present: A&O x's 3, appropriate affect, intact judgment & insight - Additional findings Additional findings: Breast examination: Bra: 34B Inspection: Asymmetry related to prior left breast lumpectomy and radiation Palpation: Right breast: Multi-positional exam fibrocystic changes no dominant masses or nodules of concern Right axilla: No adenopathy of concern Left breast: Scar is well-healed from prior surgery, postop changes, patient upper outer quadrant no dominant masses or nodules of concern; pain left breast lower outer quadrants Left axilla: No adenopathy of concern I have measured from the meridian line into the right nipple areolar complexes 2 cm lower than the left nipple areolar complex. Assessment and Plan Assessment: Impression: No evidence of recurrent left breast cancer 08-01-24 bilateral mammogram and left breast ultrasound BIRAD 2 repeat in 1 year Scan 04-25-2024 questionable area of sternum recommend x-rays, done no evidence of cancer repeat bone scan at 1 year Plan: bone scan/ done 04-25-24 small focal area of increased uptake involving the sternum nonspecific recommend x-ray correlation X-rays of sternum to correlate with findings on bone scan; no evidence of cancer on x-rays ultrasound left breast lower outer area done on 04-25-24 BIRAD 1 bone scan 2024 with appointment at that time Bilateral mammogram in September 2025 follow up after this is done pre-op clearance patient is going to schedule Mastopexy to be done secondary to asymmetry caused by treatment of breast cancer of the left breast Patient is opted not to take tamoxifen at this time
== END ==
LOC: WWCWWP 09:38
PROVIDERS: ATTEND Surgery
DX: N64.89 Other specified disorders of breast (principal)

== ENCOUNTER → 2024-09-09 | Outpatient (CLI) | payer OTHER ==
[2024-09-09 12:04] VITALS: BP 108/74; PULSE 78; RESP 18; TEMP 97.7
--- NOTE | 2024-09-09 12:27 | P.BCPN ---
Subjective Progress Note Date: 09/09/24 Principal diagnosis: left breast IDC [id number] Subjective Progress Note Date: 09-09-24 Principal diagnosis: left breast stage IA IDC [id number] Gemma is a 43-year-old white female who underwent an ultrasound guided core biopsy on . This was of the left breast upper outer quadrant region. 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 The lesion was approximately 1.5 cm on ultrasound. It was not able to be seen on mammogram but was found on ultrasound. The lesion is ER +100%, GA +10%, HER-2 negative, grade 3. This is a stage IA lesion. She also underwent an MRI of both breasts which revealed the lesion of concern noted in the left breast. No lesions of concern were noted otherwise in either breast. She also underwent Oncotype testing her Oncotype score was 22. She underwent genetic testing which was negative. Her case was presented at tumor board and the recommendation was to proceed with lumpectomy and sentinel node biopsy prior to any neoadjuvant chemotherapy. The patient's family history is positive for a paternal grandmother having had breast cancer. She underwent a left partial mastectomy on . [place] lymph node biopsy was negative. Margins were negative. She has finished a course of chemotherapy in December 2020. Completed radiation therapy on 02/19/2021. She was given a prescription for Tamoxifen however she has not started it yet as she is concerned about the side effects. She complains today of pain in the lower left breast. She complains of pain in her back. 05-20-24 03-18-2024 she was recommended to have a bone scan and an ultrasound of the left breast. Bone scan 04-25-24 revealed a questionable area in the sternum for which radiographs are recommended. Ultrasound of the left breast was negative BI-RADS 1 She has not noted any changes herself in either breast since her last visit. 08-10-24 Gemma is a 43-year-old white female who underwent an ultrasound guided core b iopsy on . This was of the left breast upper outer quadrant region. 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 The lesion was approximately 1.5 cm on ultrasound. It was not able to be seen on mammogram but was found on ultrasound. The lesion is ER +100%, GA +10%, HER-2 negative, grade 3. This is a stage IA lesion. She also underwent an MRI of both breasts which revealed the lesion of concern noted in the left breast. No lesions of concern were noted otherwise in either breast. She also underwent Oncotype testing her Oncotype score was 22. She underwent genetic testing which was negative. Her case was presented at tumor board and the recommendation was to proceed with lumpectomy and sentinel node biopsy prior to any neoadjuvant chemotherapy. The patient's family history is positive for a paternal grandmother having had breast cancer. She underwent a left partial mastectomy on . [place] lymph node biopsy was negative. Margins were negative. She has finished a course of chemotherapy in December 2020. Completed radiation therapy on 02/19/2021. bilateral mammogram and left breast ultrasound on 08-01-24 BIRAD 2 At this time she has not complained of any new lumps masses or nodules of concern in either breast. The sternal discomfort which she had in the past has resolved. And she has no new complaints. The patient does have concerns related to asymmetry of the breast related to the cancer surgery. The right nipple areolar complex is lower than the left nipple areolar complex making it hard to find clothes to fit properly. This causes her distress. 09-09-24 left breast lumpectomy 09-11-20 [id number] chemotherpay Oncotype 22: completed December 2020 radiation therapy completed February 2021 bilateral mammogram 08-01-24 BIRAD 2 assymetry of the nipple aerolar complex secondary to treatment for left breast cancer Family history: Paternal grandmother: Breast cancer Hormonal history: Menarche: 12 M1 breast-fed: Yes, first child born at 23 Menstrual periods Regular control pills: No had a tubal ligation Surgical history: Tubal ligation D&C left breast lumpectomy and SNB Medical history: Migraines Social history: Nicotine: Negative Alcohol: Negative Drugs: Negative Review of systems: HEENT headaches; recent tooth extraction Breast as per HPI Cardiovascular: Negative Respiratory: Negative GI: Negative : Negative Musculoskeletal: Negative Neurologic: Negative Psychiatric: Anxiety Endocrine: Negative Objective - Vital Signs Vital Signs: Vital Signs Temp 97.7 F 09/09/24 12:00 Pulse 78 09/09/24 12:00 Resp 18 09/09/24 12:00 BP 108/74 09/09/24 12:00 Pulse Ox 99 09/09/24 12:00 FiO2 Intake & Output 09/08/24 09/09/24 09/09/24 18:59 06:59 18:59 Weight 65.771 kg - Constitutional General appearance: Present: cooperative - EENT Eyes: Present: EOMI ENT: Present: hearing grossly normal - Neck Neck: Present: normal ROM - Breast Breast-Narrative: Breast examination: Bra: 34B Inspection: Asymmetry related to prior left breast lumpectomy and radiation Palpation: Right breast: Multi-positional exam fibrocystic changes no dominant masses or nodules of concern Right axilla: No adenopathy of concern Left breast: Scar is well-healed from prior surgery, postop changes, patient upper outer quadrant no dominant masses or nodules of concern; pain left breast lower outer quadrants Left axilla: No adenopathy of concern I have measured from the meridian line into the right nipple areolar complexes 2 cm lower than the left nipple areolar complex. Right Breast Palpation (Multi-positional): No dominant masses Left Breast Palpation (Multi-positional): Other Right Axilla Palpation: No adenopathy of concern Left Axilla Palpation: No adenopathy of concern - Respiratory Respiratory: bilateral: CTA - Cardiovascular Rhythm: regular Heart sounds: normal: S1, S2 - Gastrointestinal General gastrointestinal: Present: soft - Integumentary Integumentary: Present: normal turgor - Musculoskeletal Musculoskeletal: Present: gait normal - Psychiatric Psychiatric: Present: A&O x's 3, appropriate affect, intact judgment & insight Assessment and Plan Plan: Impression: No evidence of recurrent left breast cancer 08-01-24 bilateral mammogram and left breast ultrasound BIRAD 2 repeat in 1 year Scan 04-25-2024 questionable area of sternum recommend x-rays, done no evidence of cancer repeat bone scan at 1 year Plan: bone scan April 2025 with appointment at that time Bilateral mammogram in September 2025 pre-op clearance patient is going to schedule right breast Mastopexy to be done secondary to asymmetry caused by treatment of breast cancer of the left breast Patient is opted not to take tamoxifen at this time Consent: I have discussed the risks, benefits and alternative therapies for the above-mentioned procedure and for both sedation/analgesia as well as necessary blood product administration, if indicated, as they pertain to this patient. The patient has indicated understanding and acceptance of the risks and procedures discussed. Skin benefits of the procedure discussed with the patient. She is given the option of seeing a plastic surgeon and declined. At this time the right breast is slightly larger than the left breast however she is most concerned about the asymmetry secondary to the nipple areolar location. Therefore we will do a mastopexy and if the size asymmetry continues to bother her we will consider further intervention. CC: Dr. Yu Prep Education Provided - Preoperative Education Given Pre-Op Kit Given Date: 09/09/24 - Functional Assessment Performed?: Yes (arm abduction passed) - Smoking Cessation Education Provided?: No (nonsmoker)
== END ==
LOC: WWCWWP 11:50
PROVIDERS: ATTEND Surgery
DX: Z12.31 Encounter for screening mammogram for malignant neoplasm of breast (principal); C50.912 Malignant neoplasm of unspecified site of left female breast

== ENCOUNTER 2024-09-20 07:15 | Day surgery (SDC) | payer OTHER ==
[~2024-09-20 07:15] MED LIST changes: -DEXAMETHASONE SOD PHOSPHATE 4 MG/ML 1 ML VIAL IV ONE; -HEPARIN SODIUM,PORCINE/PF 5,000 UNIT/0.5 ML SYRINGE SQ PRN; +HYDROmorphone 0.5 MG/0.5 ML SYRINGE IVP PRN; -LACTATED RINGERS 1,000 ML IV SCH; +LIDOCAINE 1% (10MG/ML) FOR IV START INTRADERMA PRN; +METOCLOPRAMIDE 5 MG/ML 2 ML VIAL IVP PRN; -MIDAZOLAM 2 MG/2 ML VIAL IV PRN; -Pre Op ABX Message 1 EACH MISC MISCELLANE ONE; -SCOPOLAMINE 1.5MG/72HR PATCH TRANSDERM ONE; +fentaNYL (PF) 50 MCG/ML 2 ML AMP IV PRN
[2024-09-20] MEDS: IV FLUID CONTINUATION 1,000 ML IV ONE ×2 (07:44→09:26)
[2024-09-20] MEDS: DEXAMETHASONE SOD PHOSPHATE 4 MG/ML 1 ML VIAL IV ONE (07:53)
[2024-09-20] MEDS: HEPARIN SODIUM,PORCINE 5,000 UNIT/ML 1 ML VIAL SQ PRN (07:53)
[2024-09-20] MEDS: ACETAMINOPHEN TAB 500 MG TAB PO PRN (07:53)
[2024-09-20] MEDS: LACTATED RINGERS 1,000 ML IV SCH (07:53)
[2024-09-20] MEDS: SCOPOLAMINE 1 MG/72 HR PATCH TRANSDERM ONE (07:56)
[2024-09-20] MEDS: MIDAZOLAM 2 MG/2 ML VIAL IM ONE (08:22)
[2024-09-20] MEDS ORDERED: ACETAMINOPHEN IV (For NPO) 1,000 MG/100 ML VIAL ONE (08:24)
[2024-09-20] MEDS ORDERED: MIDAZOLAM 2 MG/2 ML VIAL ONE (08:24)
[2024-09-20] MEDS ORDERED: KETOROLAC 15 MG/ML 1 ML VIAL ONE (08:24)
[2024-09-20] MEDS ORDERED: fentaNYL (PF) 50 MCG/ML 2 ML AMP ONE (08:24)
[2024-09-20] MEDS ORDERED: LIDOCAINE 1% INJ 10MG/ML (20 ML MDV) ONE (08:24)
[2024-09-20] MEDS ORDERED: PROPOFOL 10 MG/ML 20 ML VIAL IV ONE (08:24)
[2024-09-20] MEDS: ceFAZolin 2 GM in DEXTROSE 5% IN WATER 50 ML IVPB PRN (08:37)
[2024-09-20] MEDS: LIDOCAINE 1% INJ 10MG/ML (20 ML MDV) SQ ONE (09:26)
--- NOTE | 2024-09-20 09:27 | P.BCAON ---
Date of Procedure: 09/20/24 Preoperative Diagnosis: Asymmetry of the nipple areolar complex with the right being lower than the left secondary to treatment for invasive ductal carcinoma left breast Postoperative Diagnosis: Same Procedure(s) Performed: Right breast mastopexy Anesthesia: RO Surgeon: Denise Pham Estimated Blood Loss (ml): 3 IV fluids (ml): 900 Pathology: other (De-epithelialized skin right breast) Condition: stable Disposition: same day Indications for Procedure: Asymmetry of nipple areolar complex secondary to surgery for left breast invasive ductal carcinoma Operative Findings: De-epithelialized skin Description of Procedure: The patient was seen and evaluated in the preoperative area. Using a tape measure the meridian line was marked. The left nipple areolar complex was approximately 3 to 4 cm lower than the right nipple areolar complex. This was marked using a crescent mastopexy marking. The areola was marked circumferentially and on the meridian line 3 cm proximal the area for the m astopexy was to be performed was marked. The patient was brought to the operative suite. Following induction of anesthesia both breasts were prepped and draped in a sterile fashion. The right crescent mastopexy skin was de- epithelialized. Using 3-0 Vicryl suture the tissue was imbricated and the de- epithelialized really lysed tissue was closed. Following this a 4-0 nylon suture was used to do a subcuticular closure. 10 cc of 1% lidocaine were injected into the area. Surgical glue was applied. The patient tolerated the procedure in stable condition. All instrument and sponge counts were correct at the end of the case.
[2024-09-20 09:59] VITALS: TEMP 97
[2024-09-20] MEDS: droPERidol 2.5 MG/ML VIAL IVP ONE (10:25)
[2024-09-20 11:35] VITALS: RESP 17
[2024-09-20 11:46] VITALS: BP 111/62; PULSE 68
== END 2024-09-20 12:00 | disposition home or self-care (01) ==
LOC: OR 07:15
PROVIDERS: ATTEND Surgery
DX: N65.1 Disproportion of reconstructed breast (principal); G43.909 Migraine, unspecified, not intractable, without status migrainosus; F41.9 Anxiety disorder, unspecified; Z79.620 Long term (current) use of immunosuppressive biologic; Z79.899 Other long term (current) drug therapy; Z85.3 Personal history of malignant neoplasm of breast; Z80.3 Family history of malignant neoplasm of breast
CPT/HCPCS: 19316; 81025; 88305; J2250; J1644; J1100; J0690; J2003; J3010; J0131; J1885; J2704; J1790